=== PATIENT | male | born 1950 | race Caucasian/White ===

== ENCOUNTER 2016-09-28 15:56 | Inpatient (IN) | payer MEDICARE ==
[~2016-09-28] VITALS: Ht 181.6 cm; Wt 86.1 kg
[2016-09-28] VITALS (7 sets, daily range): BP systolic 155–175; BP diastolic 73–92; PULSE 56–68; RESP 10–18; O2SAT 91–99
[2016-09-28 16:10] LABS: BASOPHILS % (AUTO) 0.2 % (0-3); EOSINOPHILS % (AUTO) 0.3 % (0-5); MONOCYTES % (AUTO) 9.2 % (4-12); Mean Corpuscular Hemoglobin 28.8 pg (27.0-35.0); Mean Corpuscular Volume 83.9 fL (81-100); NEUTROPHILS % (AUTO) 71.7 % (40-74); Platelet Count 190 bil/L (150-400)
[2016-09-28] MEDS ORDERED: 0.9% Sodium Chloride 1,000 ML IV ONE ×2 (16:14→18:15)
--- NOTE | 2016-09-28 16:14 | ED.REPORT ---
HPI-Abd Pain M 40 and Over Date of Service Sep 28, 2016 ED Provider: Jaden Enamorado MD Pt is 66 y/o male with a history of kidney stones who presents to ER complaining of abdominal pain onset yesterday at 0200. He began vomiting at 0300. The pt describes the abdominal pain as sharp and states that it does not radiate. The pain has been worsening since onset, and is exacerbated by laying down, standing up, or vomiting. Nothing relieves the pain. Pt is also experiencing subjective fever, diaphoresis, dehydration, and chills. He denies chest pain, SOB, or dysuria. The pt states that his pain is not similar to the pain he previously felt with kidney stones. Nursing Notes Stated Complaint: ABDOMINAL PAIN Chief Complaint: Male Abdominal Pain Nursing Notes Reviewed: Yes (Results [employer], meds not reconciled) Allergies: Coded Allergies: shellfish derived (Verified Allergy, Unknown, 09/28/16) No Active Prescriptions or Reported Meds General Time Seen by MD: 16:06 Chief Complaint Abdominal pain Hx Obtained From: Patient, EMS Arrived By: Ambulance Sudden in Onset?: No Onset Occurred: Yesterday Symptom Duration: Since onset Location: : Diffuse Recent Healthcare: No recent doctor visit, No recent hospitalization Similar Sx Previous: No Past Medical History Past Medical History kidney stones Past Surgical History adenoids Reports: Tonsillectomy Smoking History Former Smoker (quit 1998) Social History Alcohol Use: Denies alcohol use (sober since 1985) Ambulatory Status Independent Review of Systems Constitutional: Reports: Chills, Fever Respiratory: Denies: Shortness of breath Cardiovascular: Denies: Chest pain GI: Reports: Abdominal pain, Nausea, Vomiting Male: Denies Dysuria Musculoskeletal: Denies: Back pain, Neck pain Complete sys rev & neg: except as marked. Skin: Reports Diaphoresis Physical Exam Initial Vital Signs Vital Signs (First) Date Time Temp Pulse Resp B/P Pulse Ox O2 Delivery O2 Flow Rate FiO2 09/28/16 15:52 36.6 66 16 162/79 96 Room Air Initial VS: Reviewed, Vital signs normal (mild HTN) Head / Eyes: Atraumatic, Normocephalic, PERRL ENT: Mucous membranes moist, Conjunctiva normal, No scleral icterus Neck: Supple, Non-tender, Full range of motion Skin: Warm, Dry, No cyanosis Neurologic: Alert, Oriented, Nonfocal Psychiatric: Mood/affect normal, Behavior normal, Normal thought content General/Constitutional: Awake, Alert, Cooperative Appearance / Presentation: Positive: Uncomfortable appears to be in significant pain Respiratory / Chest: Atraumatic, Breath sounds NL, Breath sounds = bilat, No respiratory distress Cardiovascular: Heart rate NL, Regular rhythm, Heart sounds NL Abdomen: Atraumatic, Soft tender across lower abdomen Back: Atraumatic, Inspection NL Interpretation & Diagnostics Interpretation & Diagnostics: Abdomen US: IMPRESSION: 1. Cholelithiasis without evidence of cholecystitis. 2. No biliary duct dilatation. Dictated by: Jaspreet Agosto M.D. on 09/28/2016 at 18:28 Approved by: Jaspreet Agosto M.D. on 09/28/2016 at 18:[address]: IMPRESSION: 1. Cholelithiasis with mild gallbladder wall thickening and a small amount of pericholecystic fluid suspicious for cholecystitis. 2. No biliary ductal dilatation. 3. Mild indistinct hypoattenuation in the head and uncinate process of the pancreas with adjacent fluid along the anterior pararenal space compatible with patient's history of pancreatitis. No evidence of pseudocyst. Dictated by: Jaspreet Agosto M.D. on 09/28/2016 at 18:37 Approved by: Jaspreet Agosto M.D. on 09/28/2016 at 18:37 Lab Results Interpretation Result Diagram: 09/28/16 1606 09/28/16 1606 Test 09/28/16 16:06 White Blood Count 10.8th/mm3 (3.8-10.1) Red Blood Count 5.59mil/mm3 (4.40-5.80) Hemoglobin 16.1g/dL (13.8-17.2) Hematocrit 46.9% (41.0-50.0) Mean Corpuscular Volume 83.9fL (81-100) Mean Corpuscular Hemoglobin 28.8pg (27.0-35.0) Mean Corpuscular Hemoglobin Concent 34.3% (32.0-37.0) Red Cell Distribution Width 14.0% (12.3-15.4) Platelet Count 190bil/L (150-400) Neutrophils (%) (Auto) 71.7% (40-74) Lymphocytes (%) (Auto) 18.5% (14-46) Monocytes (%) (Auto) 9.2% (4-12) Eosinophils (%) (Auto) 0.3% (0-5) Basophils (%) (Auto) 0.2% (0-3) Sodium Level 136mEq/L (134-144) Potassium Level 3.4mEq/L (3.5-5.2) Chloride Level 98mEq/L (97-108) Carbon Dioxide Level 24mmol/L (18-29) Blood Urea Nitrogen 7mg/dL (8-27) Creatinine 0.79mg/dL (0.76-1.27) Estimat Glomerular Filtration Rate 104mL/min (>59) Glucose Level 127mg/dL (60-99) Calcium Level 9.2mg/dL (8.5-10.1) Magnesium Level 1.9mg/dL (1.6-2.6) Total Bilirubin 2.6mg/dL (0.0-1.2) Aspartate Amino Transf (AST/SGOT) 442U/L (0-50) Alanine Aminotransferase (ALT/SGPT) 243U/L (0-44) Alkaline Phosphatase 110U/L (25-160) Total Protein 7.1g/dL (6.4-8.4) Albumin 4.3g/dL (3.4-5.0) Lipase 7603U/L (13-60) Lab Results Interpretation: CBC trace leukocytosis CMP normal glucose, elevated bilirubin, LFTs, severely elevated lipase with obstructive pattern UA negative Re-Eval/Medical Decision Med Decision/Clinical Course This is a 66-year-old male presents with acute severe abdominal pain. He has no history of alcohol abuse or use, and no prior history of known gallbladder disease. On exam his in severe discomfort, required multiple titrated doses of pain and nausea medicines for symptomatic management. However his abdomen reveals only mild tenderness, without clinical signs of bianca peritonitis. His labs are no full pancreatitis, and the pattern is suspicious for potential obstructive pattern, with the possibility of bianca choledocholithiasis and a gallstone pancreatitis. An ultrasound does reveal gallstones, but no evidence of gallbladder wall thickening, and in no evidence of ductal dilatation is present on ultrasound. On CT scan of the abdomen, his pancreatitis without pseudocyst formation, or necrosis-on CT scanning there is no evidence of gallbladder wall edema with the radiologist raising the question of cholecystitis. The patient's receive aggressive IV fluids, pain and nausea medicines and was finally improved. Given the concern for choledocholithiasis remains, antibiotic was Zosyn are being administered. Given the concern for choledocholithiasis and gallstone pancreatitis, GI consultation was warranted the case is discussed. An MRCP has been ordered, and discussed with radiology, and will be obtained in the a.m. GI requests to continue Zosyn, and ensure adequate hydration with at least 200 mL per hour of IV fluids. With the possibility of a component of cholecystitis recurrent severe pancreatitis and suspected choledocholithiasis K for the first steps on medical management, evaluation and determine if adduct is obstructed by a persistent stone, with potential need for ERCP prior to any surgical intervention. It was explained to the family, that ultimately cholecystectomy likely be indicated in this setting, that the first step started address the pancreatitis and clarify the status of the duct. The case has been discussed the hospitalist, and the patient is being admitted in improved condition. The patient has required such amounts of pain medicines that he is mildly sedated on reevaluation-so the overall plan with the admission, GI consultation , antibiotics, aggressive fluids was all reviewed with the patient's with the patient in the room, but I am not convinced he understood everything. However he is vastly improved in comfort compared to the initial severe pain he presented with. Source of Hx: Old records Time of Eval: 17:24 Patient Status: Condition improved Re-Evaluation/Progress Note: Pt rechecked, who has marginally improved. He is drinking contrast for CT. Time of Eval: 19:10 Patient Status: Condition unchanged Re-Evaluation/Progress Note: Pt rechecked, who is resting. Pt and family informed of CT results, diagnosis, and need for admission. Pt and family understand and agree with the plan. All questions are addressed at this time. Consultation #1: Referral / Consult Name: Uri Nation MD Call Returned at: 18:09 Irrigation Foreman: Agrees with eval, Agrees with plan Note: Consult with Dr. Nation, GI specialist regarding medication recommendations. Consultation #2: Referral / Consult Name: Ari Morrison MD Consulted With: Hospitalist Call Returned at: 18:17 Irrigation Foreman: Agrees with eval, Agrees with plan, Accepts admit Note: Spoke with Dr. Morrison, hospitalist, regarding pt's case. Dr. Morrison agrees with the evaluation and agrees to admit the pt. Differential Diagnosis: Positive: Acute abdominal pain, Cholelithiasis, Negative: Abdominal aortic aneurysm, Abscess, Diverticular disease, Dyspepsia , Esophageal rupture, Gun shot wound abdomen, Peptic ulcer disease, Peritonitis , Pyelonephritis, Stab wound abdomen, Urinary tract infection, Urolithiasis, Volvulus Counseled Regarding: Diagnosis, Lab results, Need for admission Discharge & Departure Primary Impression: Pancreatitis Chronicity: acute Pancreatitis type: biliary Qualified Code: K85.1 - Biliary acute pancreatitis Additional Impressions: Choledocholithiasis with obstruction Cholangitis presence: without cholangitis Qualified Code: K80.51 - Calculus of bile duct without cholangitis or cholecystitis with obstruction Cholelithiasis Cholelithiasis location: gallbladder and bile duct Cholecystitis acuity: acute Biliary obstruction: with biliary obstruction Disposition: ADMITTED TO HOSPITAL Vital Signs - All Vital Signs Date Time Temp Pulse Resp B/P Pulse Ox O2 Delivery O2 Flow Rate FiO2 09/28/16 17:25 68 11 155/92 93 Room Air 09/28/16 16:25 68 10 167/76 99 Room Air 09/28/16 15:52 36.6 66 16 162/79 96 Room Air )( All Prior VS Reviewed: Yes Condition: Stable Scribe Attestation Portions of this note were transcribed by Ten Boyle and Neyda Feldman I , Dr. Enamorado personally performed the history, physical exam and medical decision-making; I reviewed and confirmed the accuracy of the information in the transcribed note. Signed by: Neyda Feldman and Leopoldo Paris, and [id number]. Jaden Enamorado MD Sep 28, 2016 16:14 Ten Boyle Sep 28, 2016 16:23 NEYDA FELDMAN Sep 28, 2016 19:10
[2016-09-28] MEDS ORDERED: Ondansetron 2 mg/mL 2 mL Inj IVPUSH ONE ×2 (16:15→17:15)
--- NOTE | 2016-09-28 16:15 | ED.REPORT ---
HPI-Abd Pain F 2 and Over Date of Service Sep 28, 2016 ED Provider: Jaden Enamorado MD Nursing Notes Stated Complaint: ABDOMINAL PAIN Chief Complaint: Male Abdominal Pain Allergies: Coded Allergies: shellfish derived (Verified Allergy, Unknown, 09/28/16) General Time Seen by MD: 16:06 Physical Exam Initial Vital Signs Vital Signs (First) Date Time Temp Pulse Resp B/P Pulse Ox O2 Delivery O2 Flow Rate FiO2 09/28/16 15:52 36.6 66 16 162/79 96 Room Air Interpretation & Diagnostics Lab Results Interpretation Result Diagram: 09/28/16 1606 09/28/16 1606 Test 09/28/16 16:06 White Blood Count 10.8th/mm3 (3.8-10.1) Red Blood Count 5.59mil/mm3 (4.40-5.80) Hemoglobin 16.1g/dL (13.8-17.2) Hematocrit 46.9% (41.0-50.0) Mean Corpuscular Volume 83.9fL (81-100) Mean Corpuscular Hemoglobin 28.8pg (27.0-35.0) Mean Corpuscular Hemoglobin Concent 34.3% (32.0-37.0) Red Cell Distribution Width 14.0% (12.3-15.4) Platelet Count 190bil/L (150-400) Neutrophils (%) (Auto) 71.7% (40-74) Lymphocytes (%) (Auto) 18.5% (14-46) Monocytes (%) (Auto) 9.2% (4-12) Eosinophils (%) (Auto) 0.3% (0-5) Basophils (%) (Auto) 0.2% (0-3) Sodium Level 136mEq/L (134-144) Potassium Level 3.4mEq/L (3.5-5.2) Chloride Level 98mEq/L (97-108) Carbon Dioxide Level 24mmol/L (18-29) Blood Urea Nitrogen 7mg/dL (8-27) Creatinine 0.79mg/dL (0.76-1.27) Estimat Glomerular Filtration Rate 104mL/min (>59) Glucose Level 127mg/dL (60-99) Calcium Level 9.2mg/dL (8.5-10.1) Magnesium Level 1.9mg/dL (1.6-2.6) Total Bilirubin 2.6mg/dL (0.0-1.2) Aspartate Amino Transf (AST/SGOT) 442U/L (0-50) Alanine Aminotransferase (ALT/SGPT) 243U/L (0-44) Alkaline Phosphatase 110U/L (25-160) Total Protein 7.1g/dL (6.4-8.4) Albumin 4.3g/dL (3.4-5.0) Lipase 7603U/L (13-60) Ten Boyle Sep 28, 2016 16:15 Jaden Enamorado MD Sep 28, 2016 16:59
[2016-09-28] MEDS: HYDROmorphone 0.5 mg/0.5 mL iSecure Syringe IVPUSH PRN ×4 (16:24→17:34)
[2016-09-28 16:34] LABS: Magnesium 1.9 mg/dL (1.6-2.6)
[2016-09-28] MEDS ORDERED: Iohexol 300 mg/mL 30 mL Inj PO ONE (16:55)
[2016-09-28] MEDS ORDERED: Promethazine Inj 12.5 MG in Dextrose 5%-Pha MIX 50 ML IV ONE (17:15)
[2016-09-28] MEDS ORDERED: Piperacillin-Tazo 3.375 Gm Inj 3.375 GM in Dextrose 5% Minibag Plus 50 ML IV ONE (18:15)
[2016-09-28] MEDS: 0.9% Sodium Chloride 1,000 ML IV SCH ×3 (18:15→23:15)
--- NOTE | 2016-09-28 18:30 | DRSVH ---
PROCEDURE: US ABDOMEN, LIMITED ([id number]) INDICATIONS: pancreatitis w/obstructive pattern ro cholelithias TECHNIQUE: Real-time focused scanning was performed of the right upper quadrant, with image documentation. COMPARISON: None. FINDINGS: There is a large shadowing mobile gallstone within gallbladder measuring up to 2.3 cm. No gallbladde r wall thickening or pericholecystic fluid. No biliary duct dilatation identified. Common bile duct measures up to 6 mm. IMPRESSION: 1. Cholelithiasis without evidence of cholecystitis. 2. No biliary duct dilatation. Dictated by: Jaspreet Agosto M.D. on 09/28/2016 at 18:28 Approved by: Jaspreet Agosto M.D. on 09/28/2016 at 18:28
--- NOTE | 2016-09-28 18:39 | DRSVH ---
PROCEDURE: CT ABDOMEN AND PELVIS WITH CONTRAST ([id number]) INDICATIONS: Abdominal pain TECHNIQUE: After the administration of oral and intravenous contrast, 5 mm thick sections acquired from the diap hragms to the symphysis. 5 mm thick coronal and sagittal reformats were performed. For radiation do se reduction, the following was used: automated exposure control, adjustment of mA and/or kV accordi ng to patient size. COMPARISON: [facility], , [facility]EN LTD, 09/28/2016, 17:42. FINDINGS: Image quality: There is mild motion artifact. ABDOMEN: Lung bases: There is mild dependent atelectasis bilaterally. Heart size is normal. Solid organs: Liver and spleen are normal in size and enhancement. There is a gallstone are demonst rated within the gallbladder measuring approximately 2 cm there is mild gallbladder wall thickening a nd hyperemia. A small amount of pericholecystic fluid is noted extending inferiorly along the left a nterior pararenal space. Biliary system is non-dilated with the common bile duct measuring up to 6 m m. There is no pancreatic duct dilatation. There is mild hypoattenuation in the head and uncinate p rocess of the pancreas. No evidence of pseudocyst. No adrenal nodules. Kidneys are normal in size and enhancement, without hydronephrosis. There is a small cyst in the left kidney. Peritoneum and bowel: Stomach, small bowel, and colon loops are normal in caliber and wall thickness . The appendix is normal in appearance. There is colonic diverticulosis without diverticulitis. No f ree fluid or air. Nodes and vessels: No retroperitoneal or mesenteric adenopathy. Aorta and inferior vena cava are no rmal in caliber. Miscellaneous: No ventral hernias. PELVIS: Genitourinary: Bladder wall thickness is normal. Miscellaneous: No inguinal hernias or adenopathy. Bones: No suspicious bony lesions. No vertebral body compression fractures. IMPRESSION: 1. Cholelithiasis with mild gallbladder wall thickening and a small amount of pericholecystic fluid suspicious for cholecystitis. 2. No biliary ductal dilatation. 3. Mild indistinct hypoattenuation in the head and uncinate process of the pancreas with adjacent fl uid along the anterior pararenal space compatible with patient's history of pancreatitis. No evidenc e of pseudocyst. Dictated by: Jaspreet Agosto M.D. on 09/28/2016 at 18:37 Approved by: Jaspreet Agosto M.D. on 09/28/2016 at 18:37
[2016-09-28] MEDS: Dextrose 5% 500 ML IV SCH (19:04)
[2016-09-28] MEDS ORDERED: HYDROmorphone 0.5 mg/0.5 mL iSecure Syringe IVPUSH PRN (19:05)
[2016-09-28] MEDS ORDERED: HYDROmorphone PCA 0.2 mg/mL 30 mL Inj IV PRN (19:05)
[2016-09-28] MEDS ORDERED: Alum-Mag Hydrox-Simeth 30 mL Suspension PO PRN (19:05)
[2016-09-28] MEDS ORDERED: MetoCLOpramide 5 mg/mL 2 mL Inj IVPUSH PRN (19:05)
[2016-09-28] MEDS ORDERED: Ondansetron 2 mg/mL 2 mL Inj IVPUSH PRN ×2 (19:05)
--- NOTE | 2016-09-28 19:12 | PCM.HPMED ---
Subjective Date of Service Sep 28, 2016 Primary Provider: Admitting Physician: Ari Morrison MD Primary Care Physician: Nopcp Attending Physician: Ari Morrison MD Chief Complaint: - abdominal pain History of Present Illness: 66 y/o male with h/o cholelithiasis presented to ED with c/o abdominal pain that started yesterday. He describes the pain as sharp, diffuses, non radiating , increased by lying down and bending. Associated with one episodes of non bloody vomiting. He also reports subjective feeling of fever, sweating and chills. He denies any chest pain, shortness of breath. In ED, he was found to hypertensive, saturating 93% on room air. Lab tests revealed mild leukocytosis ( wbc: 10.8), elevated lipase of 7603 and mild hypokalemia (3.4). Allergies Coded Allergies: shellfish derived (Verified Allergy, Unknown, 09/28/16) PMH - Gall stones Surgical History - None Social History Hx Alcohol Use: No (SOBER SINCE 1985) Hx Substance Use: No Smoking Status: Unknown if Ever Smoker Exam Vital Signs Vital Sign - Last Date Time Temp Pulse Resp B/P Pulse Ox O2 Delivery O2 Flow Rate FiO2 09/28/16 17:25 68 11 155/92 93 Room Air 09/28/16 15:52 36.6 Exam General/Constitutional: Awake, Alert, Cooperative Head / Eyes: Atraumatic, Normocephalic, PERRL ENT: Mucous membranes moist, Conjunctiva normal, No scleral icterus Neck: Supple, Non-tender, No cervical lymphadenopahty Respiratory: Normal respiratory effort, Breath sounds bilaterally equal. Abdomen: Soft, mild diffuse tenderness, No guarding, No rigidity, BS +nt Cardiovascular: Heart rate NL, Regular rhythm, Heart sounds NL, Peripheral circulation NL Skin: Warm, Dry, No cyanosis Neurologic: Alert, Oriented, Nonfocal Psychiatric: Mood/affect normal, Behavior normal, Normal thought content Back: Atraumatic, Inspection NL Lab and Diagnostics Result Diagram: 09/28/16 1606 09/28/16 1606 X-Rays, CTs and MRIs CT Abdomen (09/28/2016): 1. Cholelithiasis with mild gallbladder wall thickening and a small amount of pericholecystic fluid suspicious for cholecystitis. 2. No biliary ductal dilatation. 3. Mild indistinct hypoattenuation in the head and uncinate process of the pancreas with adjacent fluid along the anterior pararenal space compatible with patient's history of pancreatitis. No evidence of pseudocyst. US Abdomen (09/28/2016): 1. Cholelithiasis without evidence of cholecystitis.2. No biliary duct dilatation. Assessment & Plan 66 year old male with h/o gall stones presented to ED with c/o abdominal pain found to have elevated lipase. Abdominal pain likely due to pancreatitis and cholecystitis - Elevated lipase to 7603 - CT A/P revealed cholelithiasis,with features of cholecystitis and also pancreatitis. No biliary ductal dilatation. - Will start on clear liquid diet. Will advance it gradually as per tolerance - Intravenous hydration - Broad spectrum antibiotics - GI consulted from ED will follow their recommendations GI ppx: PPI DVT ppx: Heparin Status: To be admitted as inpatient as it will require more than two days of hospital stay due to complexity of medical condition. Ethics: Full code Pain Evaluation: Adequate Pain Control GI Prophylaxis: H2 moon VTE Prophylaxis: Sub-Q Heparin (Unfractionated) Resuscitation Status: CPR: Attempt Resuscitation Ari Morrison MD Sep 28, 2016 19:12
[2016-09-28 20:06] LABS: APPEARANCE,URINE CLEAR (CLEAR,HAZY); COLOR,URINE YELLOW (YELLOW); OCCULT BLOOD,URINE NEGATIVE (NEGATIVE); UROBILINOGEN,URINE NORMAL (NORMAL)
[2016-09-29] VITALS (13 sets, daily range): BP systolic 113–126; BP diastolic 64–66; PULSE 61–78; RESP 14–18; O2SAT 93–97
[2016-09-29] MEDS: 0.9% Sodium Chloride 1,000 ML IV SCH ×9 (00:04→21:51)
--- NOTE | 2016-09-29 00:10 | NUR ---
ADMIT; 66 yr old male to room 1020 at 1945 from 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 Received antiemetics in e.r. and pain rx. Sleepy. SUNGLASS CLIP ATTACHER set up. Room air 90's. Demolition Specialist dilaudid set up and explained how to use.
[2016-09-29] MEDS: Heparin 5,000 Unit/mL Inj SUBQ SCH ×3 (00:41→16:31)
[2016-09-29] MEDS: Piperacillin-Tazo 3.375 Gm Inj 3.375 GM in Dextrose 5% Minibag Plus 50 ML IV SCH ×3 (00:44→16:31)
--- NOTE | 2016-09-29 04:22 | NUR ---
TELE' set up at 2029. Sinus rhythm 65.
--- NOTE | 2016-09-29 06:58 | PCM.PNMED ---
Subjective Date of Service Sep 29, 2016 Subjective The patient is currently resting comfortably in bed. He notes his pain is increased stool but to 4 out of 10. 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 I do encourage him to use it if he needs to to help get pain control. He has had no nausea or vomiting. This pain is mostly in the upper abdomen. Labs from today are still pending. He does note that a power engineer did draw his labs today. Exam Vital Signs Vital Sign - Last Date Time Temp Pulse Resp B/P Pulse Ox O2 Delivery O2 Flow Rate FiO2 09/29/16 06:01 69 09/29/16 05:48 36.6 16 118/66 94 Room Air Intake and Output 09/28/16 09/28/16 09/29/16 Cumulative From/Thru 15:00 23:00 07:00 09/28/16 15:52 - 09/29/16 05:48 Intake Total 2000 ml 1450 ml 3450 ml Output Total 600 ml 600 ml Balance 2000 ml 850 ml 2850 ml Intake Oral 300 ml 300 ml IV Total 2000 ml 1150 ml 3150 ml Output Urine Total 600 ml 600 ml # Voids 1 1 # Bowel Movements 0 0 Exam Constitutional: Older male in no acute distress Head: Normocephalic atraumatic Chest: Clear to auscultation Cor: Regular rate and rhythm S1-S2 without murmur Abdomen: Soft there is tenderness in the epigastrium right upper quadrant no rebound or guarding noted, bowel sounds are present Extremities exam: No pedal edema noted IVs and Medications Medications Reviewed: Medications were reviewed in detail Lab and Diagnostics Laboratory Tests 72 Hours Test 09/28/16 16:06 09/28/16 18:45 White Blood Count 10.8th/mm3 (3.8-10.1) Red Blood Count 5.59mil/mm3 (4.40-5.80) Hemoglobin 16.1g/dL (13.8-17.2) Hematocrit 46.9% (41.0-50.0) Mean Corpuscular Volume 83.9fL (81-100) Mean Corpuscular Hemoglobin 28.8pg (27.0-35.0) Mean Corpuscular Hemoglobin Concent 34.3% (32.0-37.0) Red Cell Distribution Width 14.0% (12.3-15.4) Platelet Count 190bil/L (150-400) Neutrophils (%) (Auto) 71.7% (40-74) Lymphocytes (%) (Auto) 18.5% (14-46) Monocytes (%) (Auto) 9.2% (4-12) Eosinophils (%) (Auto) 0.3% (0-5) Basophils (%) (Auto) 0.2% (0-3) Sodium Level 136mEq/L (134-144) Potassium Level 3.4mEq/L (3.5-5.2) Chloride Level 98mEq/L (97-108) Carbon Dioxide Level 24mmol/L (18-29) Blood Urea Nitrogen 7mg/dL (8-27) Creatinine 0.79mg/dL (0.76-1.27) Estimat Glomerular Filtration Rate 104mL/min (>59) Glucose Level 127mg/dL (60-99) Calcium Level 9.2mg/dL (8.5-10.1) Magnesium Level 1.9mg/dL (1.6-2.6) Total Bilirubin 2.6mg/dL (0.0-1.2) Aspartate Amino Transf (AST/SGOT) 442U/L (0-50) Alanine Aminotransferase (ALT/SGPT) 243U/L (0-44) Alkaline Phosphatase 110U/L (25-160) Total Protein 7.1g/dL (6.4-8.4) Albumin 4.3g/dL (3.4-5.0) Lipase 7603U/L (13-60) Urine Color Yellow (YELLOW) Urine Appearance Clear (CLEAR,HAZY) Urine pH 8.0 (5.0-8.0) Urine Specific [place] 1.020 (1.003-1.035) Urine Protein Negativemg/dL (NEG,TRACE) Urine Glucose (UA) Negativemg/dL (NEGATIVE) Urine Ketones 15mg/dL (NEGATIVE) Urine Occult Blood Negative (NEGATIVE) Urine Nitrite Negative (NEGATIVE) Urine Bilirubin Negative (NEGATIVE) Urine Urobilinogen Normalmg/dL (NORMAL) Urine Leukocyte Esterase Negative (NEGATIVE) Urine RBC 0-2/hpf (0-2) Urine WBC 0-5/hpf (0-5) Urine Epithelial Cells None/hpf (NONE-MOD) Urine Crystals None seen (NONE SEEN) Urine Bacteria None/hpf (NONE-FEW) Urine Hyaline Casts None/lpf (NONE) Urine Granular Casts None seen (NONE SEEN) Urine Waxy Casts None seen (NONE SEEN) Urine Red Blood Cell Casts None seen (NONE SEEN) Urine White Blood Cell Casts None seen (NONE SEEN) Urine Mucus None seen (None Seen) Urine Trichomonas None seen (NONE SEEN) Urine Yeast None (NONE SEEN) Urinalysis Comment None Urine Culture Reflexed Not indicated Result Diagram: 09/28/16 1606 09/28/16 1606 X-Rays, CTs and MRIs CT Abdomen (09/28/2016): 1. Cholelithiasis with mild gallbladder wall thickening and a small amount of pericholecystic fluid suspicious for cholecystitis. 2. No biliary ductal dilatation. 3. Mild indistinct hypoattenuation in the head and uncinate process of the pancreas with adjacent fluid along the anterior pararenal space compatible with patient's history of pancreatitis. No evidence of pseudocyst. US Abdomen (09/28/2016): 1. Cholelithiasis without evidence of cholecystitis.2. No biliary duct dilatation. Assessment & Plan 66 year old male with h/o gall stones presented to ED with c/o abdominal pain found to have elevated lipase. Abdominal pain likely due to pancreatitis and cholecystitis - Elevated lipase to 7603 - CT A/P revealed cholelithiasis,with features of cholecystitis and also pancreatitis. No biliary ductal dilatation. - Will start on clear liquid diet. Will advance it gradually as per tolerance - Intravenous hydration at 200 mils per hour as ER doc mentions GI recommends - Broad spectrum antibiotics - GI consulted from ED will follow their recommendations Patient to have MRCP this morning. GI to see this morning to further evaluate. Labs from this morning are pending. GI ppx: PPI DVT ppx: Heparin Status: To be admitted as inpatient as it will require more than two days of hospital stay due to complexity of medical condition. Ethics: Full code Pain Evaluation: Adequate Pain Control GI Prophylaxis: H2 moon VTE Prophylaxis: Sub-Q Heparin (Unfractionated) VTE Mechanical Devices: Intermittant Pneumatic CD Resuscitation Status: CPR: Attempt Resuscitation Time spent 40 minutes Ayse Hall MD Sep 29, 2016 06:58
[2016-09-29 07:50] LABS: BASOPHILS % (AUTO) 0.1 % (0-3); EOSINOPHILS % (AUTO) 0.1 % (0-5); MONOCYTES % (AUTO) 8.9 % (4-12); Mean Corpuscular Hemoglobin 28.8 pg (27.0-35.0); Mean Corpuscular Volume 85.3 fL (81-100); NEUTROPHILS % (AUTO) 73.2 % (40-74); Platelet Count 148 bil/L (150-400)
[2016-09-29] MEDS: Pantoprazole 20 mg ER24 Tablet PO SCH (10:50)
--- NOTE | 2016-09-29 11:01 | DRSVH ---
PROCEDURE: MR ABDOMEN MRCP INDICATIONS: eval of choledocolithiasis TECHNIQUE: Coronal HASTE through the abdomen, axial 2-D FLASH in- and [id number], and breath-hold T2 FSE with fat saturation through the biliary system and pancreas. Oblique coronal and axial thin-slice HASTE, radial thick-slab HASTE centered on the extrahepatic bile ducts. Intravenous secretin: Not requested. COMPARISON: [facility], CT, CT [facility] 17:42. FINDINGS: Image quality: Excellent. Liver and biliary system: The liver is normal in size. No significant signal dropout is evident on the opposed phase images compared to the in phase images to suggest hepatic steatosis. No focal live r lesions are evident however, evaluation for liver lesions is suboptimal without contrast. The expe cted flow voids within the portal vein and hepatic veins within the liver are evident and suggest rustam t these vessels are patent. There is a prominent gallstone evident within the gallbladder, which juliet sures at least 2.2 cm in diameter. An additional subcentimeter gallstones are seen measuring up to 3 -4 mm within the dependent aspect of the gallbladder. Thickening of the wall of the gallbladder is p resent with moderate amount of pericholecystic fluid and mild upper abdominal ascites. The common bi le duct is slightly prominent in size and measures up to 8 mm in diameter. No intrahepatic biliary d ilatation is evident. No definite filling defects within the common bile duct are identified to sugg est choledocholithiasis. Other solid organs: The pancreas is not well evaluated on this examination. However, there is moder ate peripancreatic edema and edema involving the head and uncinate process of the pancreas. The main pancreatic duct does not appear to be enlarged. These spleen, and adrenals, and kidneys are within normal limits. A small exophytic cyst along the inferior aspect of the left kidney is incidentally n oted. There is no hydronephrosis. Nodes and vessels: No retroperitoneal or mesenteric adenopathy by size criteria. Aorta and inferior vena cava are normal in size. Bowel and peritoneum: The stomach is unremarkable. There is a moderate amount of fluid identified w ithin the duodenum which may represent focal ileus. Otherwise, the remainder of the small bowel loop s are unremarkable. Imaged portions of the colon are unremarkable. There is no bowel obstruction. A small amount of free fluid is seen within the right upper quadrant. No loculated fluid collections or large amounts of free air are identified. Lung bases: Mild atelectasis and a small right-sided pleural effusion is present. There is also a t race left-sided pleural effusion. The heart is normal in size without a pericardial effusion. Bones and soft tissues: No ventral hernias. Bone marrow is of normal overall signal. IMPRESSION: 1. Mild enlargement of the common bile duct without evidence of choledocholithiasis. 2. Gallbladder wall thickening, pericholecystic fluid, and cholelithiasis are suggestive of acute ch olecystitis. Please correlate clinically. 3. Moderate pancreatic edema and suggests pancreatitis. No pseudocysts are evident. Please note th at the pancreas is not adequately evaluated on this exam regarding pancreatitis complications. 4. Mild upper abdominal ascites. 5. Small bilateral effusions (right and left). There is mild right lower lobe consolidation which p robably represents atelectasis. Pneumonia cannot be excluded. Dictated by: Brenden Kasper M.D. on 09/29/2016 at 9:59 Approved by: Brenden Kasper M.D. on 09/29/2016 at 9:59
--- NOTE | 2016-09-29 14:09 | CONS ---
[address] [address] CONSULTATION REPORT PATIENT: CAROL TONY : 1950 MR#: [id number] ADMIT: 09/28/2016 JOB ID: [id number] DATE OF SERVICE: 09/29/2016 REASON FOR CONSULTATION: Pancreatitis. HISTORY OF PRESENTING ILLNESS: The patient is a 66-year-old gentleman with essentially no past medical history who presented to the emergency department with a complaint of epigastric pain without radiation that had started at approximately 3 p.m. yesterday. He states the pain started following eating popcorn that he made at home. The pain was associated with nausea and vomiting. He was unable to tolerate p.o. He also reported subjective fever and sweats, but denies any chills. He denied any associated diarrhea. He had never had any similar complaints like this in the past. He denies any excessive NSAID use. He denies any alcohol use. He states that he has not used any alcohol since 1985. Prior to that he reports that he did have a possible addiction. The patient denies any regurgitation symptoms prior to this episode or any heartburn symptoms. He denied any dysphagia or odynophagia. He denied any melena, hematochezia, or hematemesis. PAST MEDICAL HISTORY: None. PAST SURGICAL HISTORY: None. FAMILY HISTORY: Significant for his mother who had uterine cancer and a niece who has metastatic breast cancer. SOCIAL HISTORY: History of tobacco use but states that he quit more than 20 years ago. History of alcohol use but states that he has not had a drink since 1985. MEDICATIONS: None, with the exception of occasional Tylenol as needed. ALLERGIES: SHELLFISH. REVIEW OF SYSTEMS: His 10-point review of systems is otherwise negative, except as mentioned in the HPI. PHYSICAL EXAMINATION: His temperature is 36.6, his pulse is 66, blood pressure is 118/66, respiratory rate is 16, O2 saturation is 94% on room air. Generally, he is a white male in no apparent distress. He is oriented to person, place, and time, and answers questions appropriately. HEENT: No pallor. No icterus. Oropharynx is clear. Chest: Clear to auscultation bilaterally. Cardiovascular: S1, S2 heard. No murmurs appreciated. Abdomen: Soft, nondistended. He has some mild epigastric tenderness. There is no rebound or guarding, and bowel sounds are appreciated. Extremities: Without edema. LABORATORY DATA: Today shows a white blood cell count of 7.6, down from 10.8. His hemoglobin is 13.5, his hematocrit is 40, platelet count is 148. His sodium is 138, potassium 3.8, chloride of 104, CO2 of 24, BUN of 7, creatinine of 0.76, glucose is 99. His calcium is 8.1. Total bilirubin is 1.4, down from 1.6. His AST is 207, down from 442. ALT is 207, down from 243. Alkaline phosphatase is 90, down from 110. His total protein is 5.7, his albumin is 3.3, and his lipase is 558 down from 7603. His imaging tests have included an ultrasound of the abdomen which shows a large nonshadowing mobile gallstone within the gallbladder measuring 2.2 cm. No gallbladder wall thickening or pericholecystic fluid. No biliary duct dilation identified and the common bile duct measured approximately 6 mm. He also had a CT scan done which showed that the liver and spleen are normal in size and enhancement. There is a gallstone demonstrated within the gallbladder measuring approximately 2 cm and there is mild gallbladder wall thickening and hyperemia and a small amount of pericholecystic fluid is noted extending inferior along the anterior pararenal space. Biliary system is nondilated, with the common duct measuring up to 6 mm. There is no pancreatic duct dilation. There is mild hypoattenuation of the head and uncinate process of the pancreas. No evidence of pseudocyst. MEDICATIONS: His hospital medications include Protonix 20 mg daily. He is on heparin subcu. He is on Zosyn IV q.8 h. 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 He also has p.r.n. medications which include metoclopramide, Zofran, diphenhydramine. His IV is running normal saline at 200 mL/h. His total intake has been recorded as 1450 and his output as 600 mL. ASSESSMENT AND PLAN: A 66-year-old gentleman presenting with pancreatitis, with imaging showing gallstones in the gallbladder. I suspect he had or has passed the common bile duct stone and his pain has improved. Would recommend an MRCP to evaluate the biliary tree to see if there is a stone present in the CBD and if a stone is present will plan for ERCP. If MRCP does not show any evidence of choledocholithiasis, recommend cholecystectomy and then intraoperative cholangiogram. I have consulted Dr. David Shay with General Surgery. Will await MRI results. In the meantime, would continue clear liquid diet, which the patient seems to be tolerating, and continue to follow LFTs. Would also continue antibiotics as the patient did report symptoms of fever and sweats. Thank you for allowing me to participate in the patient's care. If you have any further questions, please not hesitate to contact me. JANE
--- NOTE | 2016-09-29 14:16 | CONS ---
[address] [address] CONSULTATION REPORT PATIENT: CAROL TONY : 1950 MR#: [id number] ADMIT: 09/28/2016 JOB ID: [id number] DATE OF SERVICE: 09/29/2016 CHIEF COMPLAINT: Gallstone pancreatitis. HISTORY OF PRESENT ILLNESS: The patient is a 66-year-old male who presented to the emergency department last night due to abdominal pain. According the patient, this pain started two days ago at 2 a.m. This was associated with numerous episodes of nausea and vomiting. The pain is described to be from the bilateral subcostal location all the way down to the lower abdomen. He has never had this pain before. Workup in the emergency department last night included an ultrasound as well as a CT scan that suggests cholelithiasis and pancreatitis. I was consulted by the gastroenterology service for evaluation. The patient just underwent an MRCP this morning due to elevated total bilirubin. The patient's lipase was 7600 and this morning it has come down to 558. PAST MEDICAL HISTORY: Kidney stones and tonsillectomy. MEDICATIONS: None. ALLERGIES: SHELLFISH. SOCIAL HISTORY: The patient lives in [place] with his mother. He is . He does not have any children. 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 FAMILY HISTORY: Positive for urine cancer in his mother and cholecystectomy in his grandmother. REVIEW OF SYSTEMS: Positive for the abdominal pain and nausea, vomiting. All other systems reviewed were negative. PHYSICAL EXAMINATION: The patient is currently sitting upright in the bed, in no acute distress. He has just returned from the MRCP testing. His BMI is 26.1, temperature is 36.6, blood pressure 118/66, pulse is 66, respirations 16. Head is normocephalic, atraumatic. There is no scleral icterus. Neck is supple. Heart is regular rate. Lungs are clear. Abdomen is slightly distended, and there is nonspecific tenderness with palpation in all quadrants, but more so in the epigastric region. There are no peritoneal signs. Extremities show no clubbing and no cyanosis. Neurologically, the patient is awake and alert and answers appropriately. LABORATORY EXAMINATION: This morning shows a white blood count of 7.6, hematocrit 40, platelet count is 148. His total bilirubin last night was 2.6 and it has come down to 1.4. His lipase was 7600 and now it is down to 558. ASSESSMENT AND PLAN: This is a 66-year-old male with a first episode of gallstone pancreatitis. He is clinically improving. We will follow up on the results of the MRCP to see if he needs an ERCP by the GI service. We will continue to allow his pancreatitis to resolve prior to pursuing laparoscopic cholecystectomy. His lipase and liver function tests will be repeated in the morning. JANE
--- NOTE | 2016-09-29 14:34 | NUR ---
Social Work Note: Initial Assessment Data& Assessment: EMR reviewed. SW met with pt at bedside to discuss discharge planning, SW role explained. Alber Rosen is a 66 year old male admitted for abdominal pain. Pt has Medicare and [facility] Supplemental insurance coverage. Pt does not have a PCP and reports not seeing a doctor since 1991. SW educated pt on the [facility] for follow up care, pt explained he will ask for recommendations for providers in the community. Pt lives with his mother in [place] and is independent with all ADL's at baseline. Pt drives. Pt does not use any DME. Pt denies HH or SNF hx. Pt denies LTC insurance or VA benefits. Pt states he has DPOA paperwork completed in a safety deposit box, SW requested a copy for his chart when possible. Pt explained he plans to discharge home via POV or private pay taxi when medically ready. Pt denies any needs at this time. SW provided SW phone number on [employer]. SW to continue to follow if any needs arise. No other discharge needs identified at this time. Plan: Anticipated discharge home via POV or private pay taxi when medically ready. Pt denies any needs at this time. SW to continue to follow if any needs arise. No other discharge needs identified at this time. RAJESH Zamorano Addendum: 09/29/16 at 1439 by HOMAR ROSSI Amended: Links added.
[2016-09-29] MEDS: Dextrose 5% 500 ML IV SCH (19:04)
--- NOTE | 2016-09-29 19:22 | NUR ---
Activity Pt had no c/o pain, N/V/D during shift. Able to ambulate safely in room and shower independently with only set up help. On skin assessment pt has small open area with blanchable redness on coccyx. States he normally gets "chaffed when I hike or walk a lot" and wants cornstarch to put on it. Applied mepilex and pt states "it feels better". Addendum: 09/29/16 at 1931 by MANDI CHRISTENSEN RN Entered in error on wrong pt.
--- NOTE | 2016-09-29 19:32 | NUR ---
Activity Pt having anxiety during shift, but no c/o pain and has RAIL GRINDER in place. Able to ambulate independantly in room. Pt's mom having abd pain in room during shift and was taken to ED then admitted to second floor room 2007. Pt notified of her status.
[2016-09-30] VITALS (12 sets, daily range): BP systolic 124–139; BP diastolic 52–71; PULSE 65–74; RESP 14–20; O2SAT 93–96
[2016-09-30] MEDS: Piperacillin-Tazo 3.375 Gm Inj 3.375 GM in Dextrose 5% Minibag Plus 50 ML IV SCH ×3 (00:28→17:10)
[2016-09-30] MEDS: Heparin 5,000 Unit/mL Inj SUBQ SCH ×3 (00:29→17:10)
--- NOTE | 2016-09-30 02:42 | NUR ---
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 Patient states he has 0/10 at this time. Patient A&Ox3. Up independent to bathroom. Using call light appropriately.
[2016-09-30 06:23] LABS: BASOPHILS % (AUTO) 0.1 % (0-3); EOSINOPHILS % (AUTO) 0.3 % (0-5); MONOCYTES % (AUTO) 10.6 % (4-12); Mean Corpuscular Hemoglobin 28.5 pg (27.0-35.0); Mean Corpuscular Volume 84.9 fL (81-100); NEUTROPHILS % (AUTO) 72.3 % (40-74); Platelet Count 131 bil/L (150-400)
[2016-09-30 06:47] LABS: INR 1.08 ratio
[2016-09-30] MEDS: Pantoprazole 20 mg ER24 Tablet PO SCH (08:52)
[2016-09-30] MEDS: 0.9% Sodium Chloride 1,000 ML IV SCH ×2 (08:52→20:33)
--- NOTE | 2016-09-30 10:40 | NUR ---
IV Site IV site infiltrated this AM. Warm pack applied to site. IV DC'd and intact. New IV site in right hand, 20g, 1 attempt. Patient denies pain and uses STAMP ANALYST occasionally. Denies nausea. Call light and tray table within reach. Will continue to monitor patient hourly.
--- NOTE | 2016-09-30 12:21 | PCM.PNMED ---
Subjective Date of Service Sep 30, 2016 Subjective Lying in bed seen this morning, no complaints of pain during my exam. Has been tolerating clear liquid diet. Denies fevers chills chest pain or shortness of breath. Exam Vital Signs Vital Sign - Last Date Time Temp Pulse Resp B/P Pulse Ox O2 Delivery O2 Flow Rate FiO2 09/30/16 12:04 18 93 09/30/16 09:54 37.2 73 128/69 Room Air Intake and Output 09/29/16 09/29/16 09/30/16 Cumulative From/Thru 15:00 23:00 07:00 09/28/16 15:52 - 09/30/16 06:55 Intake Total 2729 ml 2652 ml 8831 ml Output Total 1800 ml 1200 ml 3600 ml Balance 929 ml 1452 ml 5231 ml Intake Oral 1380 ml 1440 ml 3120 ml IV Total 1349 ml 1212 ml 5711 ml Output Urine Total 1800 ml 1200 ml 3600 ml # Voids 4 5 # Bowel Movements 0 Exam Constitutional: Older male in no acute distress Head: Normocephalic atraumatic Chest: Clear to auscultation Cor: Regular rate and rhythm S1-S2 without murmur Abdomen: Soft there is tenderness in the epigastrium right upper quadrant no rebound or guarding noted, bowel sounds are present Extremities exam: No pedal edema noted IVs and Medications Medications Reviewed: Medications were reviewed in detail Lab and Diagnostics Result Diagram: 09/30/16 0525 09/30/16 0330 X-Rays, CTs and MRIs CT Abdomen (09/28/2016): 1. Cholelithiasis with mild gallbladder wall thickening and a small amount of pericholecystic fluid suspicious for cholecystitis. 2. No biliary ductal dilatation. 3. Mild indistinct hypoattenuation in the head and uncinate process of the pancreas with adjacent fluid along the anterior pararenal space compatible with patient's history of pancreatitis. No evidence of pseudocyst. US Abdomen (09/28/2016): 1. Cholelithiasis without evidence of cholecystitis.2. No biliary duct dilatation. MRCP, September 29: IMPRESSION: 1. Mild enlargement of the common bile duct without evidence of choledocholithiasis. 2. Gallbladder wall thickening, pericholecystic fluid, and cholelithiasis are suggestive of acute cholecystitis. Please correlate clinically. 3. Moderate pancreatic edema and suggests pancreatitis. No pseudocysts are evident. Please note that the pancreas is not adequately evaluated on this exam regarding pancreatitis complications. 4. Mild upper abdominal ascites. 5. Small bilateral effusions (right and left). There is mild right lower lobe consolidation which probably represents atelectasis. Pneumonia cannot be excluded. Dictated by: Brenden Kasper M.D. on 09/29/2016 at 9:59 Assessment & Plan 66 year old male with h/o gall stones presented to ED with c/o abdominal pain found to have elevated lipase - with evidence of gallstone pancreatitis and no evidence of choledocholithiasis on MRCP Abdominal pain likely due to above gallstone pancreatitis - Elevated lipase to 7603 - CT A/P revealed cholelithiasis,with features of cholecystitis and also pancreatitis. No biliary ductal dilatation. - Advance to full liquid diet from clear liquid diet today given tolerance - Intravenous hydration at 100 mils per hour - Broad spectrum antibiotics - GI consulted from ED will follow their recommendations - Status post MRCP with no evidence of choledocholithiasis -Appreciate GI recommendations GI ppx: PPI DVT ppx: Heparin Status: To be admitted as inpatient as it will require more than two days of hospital stay due to complexity of medical condition. Ethics: Full code GI Prophylaxis: H2 moon VTE Prophylaxis: Sub-Q Heparin (Unfractionated) VTE Mechanical Devices: Intermittant Pneumatic CD Resuscitation Status: CPR: Attempt Resuscitation Time spent 35 minutes spent with evaluation and management, greater than 50% at time spent [id number] Attending Statement Advancing diet today but likely having cholecystectomy prior to discharge as facilitated by GI service Jr Levy DO Sep 30, 2016 12:21
--- NOTE | 2016-09-30 13:06 | PCM.PNSURG ---
Subjective Date of Service: Sep 30, 2016 Date of Service: Sep 30, 2016 Visit Information: Reason for Visit: Pancreatitis R/O Biliary Obstruction Date of Admission: Sep 28, 2016 at 18:27 Hospital Day #3 Subjective: The patient is sitting up in bed resting comfortably, denies nausea vomiting, discomfort or pain. 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) Postop Activity: Ambulating in Room Only Objective Vital Sign- Last 8 Hours Date Time Temp Pulse Resp B/P Pulse Ox O2 Delivery O2 Flow Rate FiO2 09/30/16 12:04 18 93 09/30/16 09:54 37.2 73 18 128/69 94 Room Air 09/30/16 09:10 18 95 09/30/16 06:45 14 96 Intake and Output- Last 8 Hour 09/30/16 Cumulative From/Thru 07:00 09/28/16 15:52 - 09/30/16 06:55 Intake Total 2652 ml 8831 ml Output Total 1200 ml 3600 ml Balance 1452 ml 5231 ml Intake Oral 1440 ml 3120 ml IV Total 1212 ml 5711 ml Output Urine Total 1200 ml 3600 ml # Voids 5 # Bowel Movements 0 General: Alert, Oriented X3, No Acute Distress Lungs: Clear to Auscultation Heart: Regular Rate/Rhythm Abdomen: Benign, Soft, Non-tender, Non-distended, Normoactive bowel tones Extremities: Thigh&Calf Soft/Nontender Neuro: Grossly Neurologically Intact Catheters: None Result Diagram: 09/30/16 0525 09/30/16 0330 Lab & Micro Results: WBC: 10.8 - 7.6 - 9.9 PLT: 190 - 148 - 131 AST: 442 - 207 - 73 ALT: 243 - 207 - 132 Lipase: 7603 - 558 - 60 Diagnostics: CT Abdomen & Pelvis with contrast 09/28/16 IMPRESSION: 1. Cholelithiasis with mild gallbladder wall thickening and a small amount of pericholecystic fluid suspicious for cholecystitis. 2. No biliary ductal dilatation. 3. Mild indistinct hypoattenuation in the head and uncinate process of the pancreas with adjacent fluid along the anterior pararenal space compatible with patient's history of pancreatitis. No evidence of pseudocyst. Ultrasound of Abdomen 09/28/16 IMPRESSION: 1. Cholelithiasis without evidence of cholecystitis. 2. No biliary duct dilatation. MRCP Abdomen 09/29/16 IMPRESSION: 1. Mild enlargement of the common bile duct without evidence of choledocholithiasis. 2. Gallbladder wall thickening, pericholecystic fluid, and cholelithiasis are suggestive of acute cholecystitis. Please correlate clinically. 3. Moderate pancreatic edema and suggests pancreatitis. No pseudocysts are evident. Please note that the pancreas is not adequately evaluated on this exam regarding pancreatitis complications. 4. Mild upper abdominal ascites. 5. Small bilateral effusions (right and left). There is mild right lower lobe consolidation which probably represents atelectasis. Pneumonia cannot be excluded. 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
--- NOTE | 2016-09-30 13:29 | PCM.PNMED ---
Subjective Date of Service Sep 30, 2016 Subjective Mr. 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 Exam Vital Signs Vital Sign - Last Date Time Temp Pulse Resp B/P Pulse Ox O2 Delivery O2 Flow Rate FiO2 09/30/16 12:04 18 93 09/30/16 09:54 37.2 73 128/69 Room Air Intake and Output 09/29/16 09/29/16 09/30/16 Cumulative From/Thru 15:00 23:00 07:00 09/28/16 15:52 - 09/30/16 06:55 Intake Total 2729 ml 2652 ml 8831 ml Output Total 1800 ml 1200 ml 3600 ml Balance 929 ml 1452 ml 5231 ml Intake Oral 1380 ml 1440 ml 3120 ml IV Total 1349 ml 1212 ml 5711 ml Output Urine Total 1800 ml 1200 ml 3600 ml # Voids 4 5 # Bowel Movements 0 Exam Generally no apparent distress oriented to person place and time HEENT no pallor Respiratory clear to auscultation Cardiovascular S1 and S2 heard Abdomen soft, nondistended, nontender, positive bowel sounds Lab and Diagnostics Result Diagram: 09/30/16 0525 09/30/16 0330 X-Rays, CTs and MRIs CT Abdomen (09/28/2016): 1. Cholelithiasis with mild gallbladder wall thickening and a small amount of pericholecystic fluid suspicious for cholecystitis. 2. No biliary ductal dilatation. 3. Mild indistinct hypoattenuation in the head and uncinate process of the pancreas with adjacent fluid along the anterior pararenal space compatible with patient's history of pancreatitis. No evidence of pseudocyst. US Abdomen (09/28/2016): 1. Cholelithiasis without evidence of cholecystitis.2. No biliary duct dilatation. MRCP, September 29: IMPRESSION: 1. Mild enlargement of the common bile duct without evidence of choledocholithiasis. 2. Gallbladder wall thickening, pericholecystic fluid, and cholelithiasis are suggestive of acute cholecystitis. Please correlate clinically. 3. Moderate pancreatic edema and suggests pancreatitis. No pseudocysts are evident. Please note that the pancreas is not adequately evaluated on this exam regarding pancreatitis complications. 4. Mild upper abdominal ascites. 5. Small bilateral effusions (right and left). There is mild right lower lobe consolidation which probably represents atelectasis. Pneumonia cannot be excluded. Dictated by: Brenden Kasper M.D. on 09/29/2016 at 9:59 Assessment & Plan Gallstone pancreatitis -Multiple imaging studies without evidence of choledocholithiasis, LFTs are improving however bilirubin is minimally up today -Recommend following LFTs -Recommend Cholecystectomy with intraoperative cholangiogram Colon cancer screening -Recommend colonoscopy as an outpatient for screening GI Prophylaxis: H2 moon VTE Prophylaxis: Sub-Q Heparin (Unfractionated) VTE Mechanical Devices: Intermittant Pneumatic CD Resuscitation Status: CPR: Attempt Resuscitation Uri Nation MD Sep 30, 2016 13:29
--- NOTE | 2016-09-30 14:56 | NUR ---
Continued Discharge Planning: SW conducted discharge planning update. Plan remains as home in [place], pending clinical course. EMR notes refect possible cholecystomy. Patient is self pay and [facility] is following. Per [facility] notes, patient has no payer source at this time. Patient diet to be advanced. SW to follow as further needs arise. PLAN: Home, via POV, pending clinical course. SW to follow as patient is self pay. [facility] following. Alvaro MENA
--- NOTE | 2016-09-30 16:13 | NUR ---
Off Unit Patient off floor to visit his mother in room 2007.
--- NOTE | 2016-09-30 16:37 | PROG NOTE ---
[address] [address] PROGRESS NOTE PATIENT: CAROL TONY : 1950 MR#: [id number] ADMIT: 09/28/2016 JOB ID: [id number] DATE: 09/30/2016 HISTORY OF PRESENT ILLNESS: The patient is seen in followup. He was admitted with pancreatitis. He has gallstones with a presumptive diagnosis of gallstone pancreatitis. His MR scan showed no evidence of choledocholithiasis and that was completed on September 29, 2016. He is currently not having pain, but his MR scan did show moderate pancreatic edema, mild upper abdominal ascites, small bilateral effusions and gallbladder wall thickening. His lipase has normalized. His white blood cell count has normalized. His hematocrit is stable at 38, but his bilirubin today did go from 1.4 yesterday to 2.0 today. His lipase is within normal limits at 60. IMPRESSION: Gallstone pancreatitis, clinically improved. I discussed a laparoscopic possible open cholecystectomy with the patient and cholangiograms. I discussed the typical recovery. I discussed potential operative complications including, but not limited to, bleeding, infection, bile leak, bile ductal injury, and postoperative diarrhea. I discussed the typical recovery. He is tentatively on the schedule for tomorrow. He is aware that it will be done either by myself or by Dr. Jr Lo. Unfortunately, the patient's 90-year-old mother had a myocardial infarction and is in the hospital at the same time. His GRIPS will be stopped so he can go off the floor to visit his mother.
--- NOTE | 2016-09-30 16:46 | NUR ---
Back on Unit Patient back on floor from P[facility] room 2007. Denies pain and nausea at this time. Patient worried about mother. Call light and tray table within reach. Will continue to monitor patient hourly.
[2016-10-01] VITALS (10 sets, daily range): BP systolic 99–167; BP diastolic 60–98; PULSE 58–78; RESP 13–22; O2SAT 94–97
[2016-10-01] MEDS: Piperacillin-Tazo 3.375 Gm Inj 3.375 GM in Dextrose 5% Minibag Plus 50 ML IV SCH ×4 (00:03→18:10)
[2016-10-01] MEDS: Heparin 5,000 Unit/mL Inj SUBQ SCH ×3 (00:08→17:54)
--- NOTE | 2016-10-01 04:42 | NUR ---
Sleep/ Pain/ Anxiety over family illness; Call placed to PCC RN for update on mother early in shift. Re-assured pt that she was stable and doing well. Expressed great relief as well as acknowledging she is a No Code status. NPO p/ 0400 for Choli sometime this AM. No consent signed as no ordered written yet. Continue IVF's and ABX as ordered. Slept t/o the night. Continue current care plan.
[2016-10-01] MEDS: 0.9% Sodium Chloride 1,000 ML IV SCH ×2 (05:26→17:15)
[2016-10-01 05:58] LABS: BASOPHILS % (AUTO) 0.3 % (0-3); EOSINOPHILS % (AUTO) 2.3 % (0-5); MONOCYTES % (AUTO) 10.1 % (4-12); Mean Corpuscular Volume 84.3 fL (81-100); Platelet Count 133 bil/L (150-400)
[2016-10-01] MEDS: Pantoprazole 20 mg ER24 Tablet PO SCH (07:59)
--- NOTE | 2016-10-01 09:01 | PCM.PNMED ---
Subjective Date of Service Oct 01, 2016 Subjective Patient denies any nausea or vomiting. He is scheduled for the OR today at 10 AM. Denies any fevers or chills. Exam Vital Signs Vital Sign - Last Date Time Temp Pulse Resp B/P Pulse Ox O2 Delivery O2 Flow Rate FiO2 10/01/16 04:00 36.6 62 20 131/74 95 Room Air Intake and Output 09/30/16 09/30/16 10/01/16 Cumulative From/Thru 15:00 23:00 07:00 09/28/16 15:52 - 10/01/16 06:15 Intake Total 2217 ml 1952 ml 19640 ml Output Total 2225 ml 2100 ml 7925 ml Balance -8 ml -148 ml 5075 ml Intake Oral 1300 ml 720 ml 5140 ml IV Total 917 ml 1232 ml 7860 ml Output Urine Total 2225 ml 2100 ml 7925 ml # Voids 5 # Bowel Movements 0 Exam Constitutional: Middle-aged male in no acute distress Head: Normocephalic atraumatic Chest: Clear to auscultation Cor: Regular rate and rhythm S1-S2 without murmur Abdomen: Soft nontender bowel sounds present Extremities: No pedal edema Neuro: Alert and oriented 3, motor strength is intact bilaterally Lab and Diagnostics Laboratory Tests 72 Hours Test 09/28/16 16:06 09/28/16 18:45 09/29/16 06:11 09/30/16 03:30 White Blood Count 10.8th/mm3 (3.8-10.1) 7.6th/mm3 (3.8-10.1) Red Blood Count 5.59mil/mm3 (4.40-5.80) 4.69mil/mm3 (4.40-5.80) Hemoglobin 16.1g/dL (13.8-17.2) 13.5g/dL (13.8-17.2) Hematocrit 46.9% (41.0-50.0) 40.0% (41.0-50.0) Mean Corpuscular Volume 83.9fL (81-100) 85.3fL (81-100) Mean Corpuscular Hemoglobin 28.8pg (27.0-35.0) 28.8pg (27.0-35.0) Mean Corpuscular Hemoglobin Concent 34.3% (32.0-37.0) 33.8% (32.0-37.0) Red Cell Distribution Width 14.0% (12.3-15.4) 14.2% (12.3-15.4) Platelet Count 190bil/L (150-400) 148bil/L (150-400) Neutrophils (%) (Auto) 71.7% (40-74) 73.2% (40-74) Lymphocytes (%) (Auto) 18.5% (14-46) 17.6% (14-46) Monocytes (%) (Auto) 9.2% (4-12) 8.9% (4-12) Eosinophils (%) (Auto) 0.3% (0-5) 0.1% (0-5) Basophils (%) (Auto) 0.2% (0-3) 0.1% (0-3) Sodium Level 136mEq/L (134-144) 138mEq/L (134-144) 139mEq/L (134-144) Potassium Level 3.4mEq/L (3.5-5.2) 3.8mEq/L (3.5-5.2) 3.5mEq/L (3.5-5.2) Chloride Level 98mEq/L (97-108) 104mEq/L (97-108) 104mEq/L (97-108) Carbon Dioxide Level 24mmol/L (18-29) 24mmol/L (18-29) 24mmol/L (18-29) Blood Urea Nitrogen 7mg/dL (8-27) 7mg/dL (8-27) 6mg/dL (8-27) Creatinine 0.79mg/dL (0.76-1.27) 0.96mg/dL (0.76-1.27) 0.90mg/dL (0.76-1.27) Estimat Glomerular Filtration Rate 104mL/min (>59) 83mL/min (>59) 89mL/min (>59) Glucose Level 127mg/dL (60-99) 99mg/dL (60-99) 84mg/dL (60-99) Calcium Level 9.2mg/dL (8.5-10.1) 8.1mg/dL (8.5-10.1) 8.1mg/dL (8.5-10.1) Magnesium Level 1.9mg/dL (1.6-2.6) Total Bilirubin 2.6mg/dL (0.0-1.2) 1.4mg/dL (0.0-1.2) 2.0mg/dL (0.0-1.2) Aspartate Amino Transf (AST/SGOT) 442U/L (0-50) 207U/L (0-50) 73U/L (0-50) Alanine Aminotransferase (ALT/SGPT) 243U/L (0-44) 207U/L (0-44) 132U/L (0-44) Alkaline Phosphatase 110U/L (25-160) 90U/L (25-160) 86U/L (25-160) Total Protein 7.1g/dL (6.4-8.4) 5.7g/dL (6.4-8.4) 5.3g/dL (6.4-8.4) Albumin 4.3g/dL (3.4-5.0) 3.3g/dL (3.4-5.0) 3.3g/dL (3.4-5.0) Lipase 7603U/L (13-60) 558U/L (13-60) 60U/L (13-60) Urine Color Yellow (YELLOW) Urine Appearance Clear (CLEAR,HAZY) Urine pH 8.0 (5.0-8.0) Urine Specific [place] 1.020 (1.003-1.035) Urine Protein Negativemg/dL (NEG,TRACE) Urine Glucose (UA) Negativemg/dL (NEGATIVE) Urine Ketones 15mg/dL (NEGATIVE) Urine Occult Blood Negative (NEGATIVE) Urine Nitrite Negative (NEGATIVE) Urine Bilirubin Negative (NEGATIVE) Urine Urobilinogen Normalmg/dL (NORMAL) Urine Leukocyte Esterase Negative (NEGATIVE) Urine RBC 0-2/hpf (0-2) Urine WBC 0-5/hpf (0-5) Urine Epithelial Cells None/hpf (NONE-MOD) Urine Crystals None seen (NONE SEEN) Urine Bacteria None/hpf (NONE-FEW) Urine Hyaline Casts None/lpf (NONE) Urine Granular Casts None seen (NONE SEEN) Urine Waxy Casts None seen (NONE SEEN) Urine Red Blood Cell Casts None seen (NONE SEEN) Urine White Blood Cell Casts None seen (NONE SEEN) Urine Mucus None seen (None Seen) Urine Trichomonas None seen (NONE SEEN) Urine Yeast None (NONE SEEN) Urinalysis Comment None Urine Culture Reflexed Not indicated Test 09/30/16 05:25 10/01/16 04:53 10/01/16 05:40 White Blood Count 9.9th/mm3 (3.8-10.1) 7.7th/mm3 (3.8-10.1) Red Blood Count 4.56mil/mm3 (4.40-5.80) 4.65mil/mm3 (4.40-5.80) Hemoglobin 13.0g/dL (13.8-17.2) 13.5g/dL (13.8-17.2) Hematocrit 38.7% (41.0-50.0) 39.2% (41.0-50.0) Mean Corpuscular Volume 84.9fL (81-100) 84.3fL (81-100) Mean Corpuscular Hemoglobin 28.5pg (27.0-35.0) 29.0pg (27.0-35.0) Mean Corpuscular Hemoglobin Concent 33.6% (32.0-37.0) 34.4% (32.0-37.0) Red Cell Distribution Width 14.2% (12.3-15.4) 13.9% (12.3-15.4) Platelet Count 131bil/L (150-400) 133bil/L (150-400) Neutrophils (%) (Auto) 72.3% (40-74) 69.0% (40-74) Lymphocytes (%) (Auto) 16.6% (14-46) 18.0% (14-46) Monocytes (%) (Auto) 10.6% (4-12) 10.1% (4-12) Eosinophils (%) (Auto) 0.3% (0-5) 2.3% (0-5) Basophils (%) (Auto) 0.1% (0-3) 0.3% (0-3) Prothrombin Time 11.6sec (8.1-12.5) Prothromb Time International Ratio 1.08ratio Sodium Level 140mEq/L (134-144) Potassium Level 3.7mEq/L (3.5-5.2) Chloride Level 106mEq/L (97-108) Carbon Dioxide Level 24mmol/L (18-29) Blood Urea Nitrogen 5mg/dL (8-27) Creatinine 0.92mg/dL (0.76-1.27) Estimat Glomerular Filtration Rate 87mL/min (>59) Glucose Level 97mg/dL (60-99) Calcium Level 8.3mg/dL (8.5-10.1) Total Bilirubin 1.5mg/dL (0.0-1.2) Aspartate Amino Transf (AST/SGOT) 33U/L (0-50) Alanine Aminotransferase (ALT/SGPT) 92U/L (0-44) Alkaline Phosphatase 89U/L (25-160) Total Protein 5.6g/dL (6.4-8.4) Albumin 3.3g/dL (3.4-5.0) Lipase 25U/L (13-60) Result Diagram: 10/01/16 0453 10/01/16 0540 X-Rays, CTs and MRIs CT Abdomen (09/28/2016): 1. Cholelithiasis with mild gallbladder wall thickening and a small amount of pericholecystic fluid suspicious for cholecystitis. 2. No biliary ductal dilatation. 3. Mild indistinct hypoattenuation in the head and uncinate process of the pancreas with adjacent fluid along the anterior pararenal space compatible with patient's history of pancreatitis. No evidence of pseudocyst. US Abdomen (09/28/2016): 1. Cholelithiasis without evidence of cholecystitis.2. No biliary duct dilatation. MRCP, September 29: IMPRESSION: 1. Mild enlargement of the common bile duct without evidence of choledocholithiasis. 2. Gallbladder wall thickening, pericholecystic fluid, and cholelithiasis are suggestive of acute cholecystitis. Please correlate clinically. 3. Moderate pancreatic edema and suggests pancreatitis. No pseudocysts are evident. Please note that the pancreas is not adequately evaluated on this exam regarding pancreatitis complications. 4. Mild upper abdominal ascites. 5. Small bilateral effusions (right and left). There is mild right lower lobe consolidation which probably represents atelectasis. Pneumonia cannot be excluded. Dictated by: Brenden Kasper M.D. on 09/29/2016 at 9:59 Assessment & Plan Gallstone pancreatitis -Multiple imaging studies without evidence of choledocholithiasis, LFTs are improving however bilirubin is minimally up today -Recommend following LFTs -Recommend Cholecystectomy with intraoperative cholangiogram : Patient scheduled for OR today at 10 AM for cholecystectomy with intraoperative cholangiogram Colon cancer screening -Recommend colonoscopy as an outpatient for screening GI Prophylaxis: H2 moon VTE Prophylaxis: Sub-Q Heparin (Unfractionated) VTE Mechanical Devices: Intermittant Pneumatic CD Resuscitation Status: CPR: Attempt Resuscitation Time spent 30 minutes Ayse Hall MD Oct 01, 2016 09:01
[2016-10-01] MEDS ORDERED: CeFAZolin Inj 2 GM in IV Premix 1 EACH IV ONE (09:15)
--- NOTE | 2016-10-01 09:35 | PCM.HPANE ---
Patient Data Surgeon Admitting Provider:Ari Morrison MD Attending Provider:Ari Morrison MD Primary Care Physician:Nopcp Other Provider: Reason for Visit Pancreatitis R/O Biliary Obstruction PANCREATITIS R/O BILIARY OBSTRUCTION Ht/WT & BMI Height (Feet): 5 Height (Inches): 11.50 Weight (Kilograms): 86.100 Body Mass Index 25.96 Allergies Coded Allergies: shellfish derived (Verified Allergy, Unknown, 09/28/16) Diabetes History Hx Diabetes?: No Medications No Active Prescriptions or Reported Meds History History of ENT Problems?: No Other HEENT Pertinent History: pt denies Hx of Heart Problems?: No Cardiovascular History: Denies:: Congestive Heart Failure Hypertension Other Cardiac History: pt denies Hx of Respiratory Problem?: No Respiratory History: Denies:: Tuberculosis Other Resp Pertinent History: pt denies Hx Neurologic Problems?: No Other Neurological Pertinent: pt denies Hx of GI Problems?: Yes Gastrointestinal History: Denies:: Diverticulitis Gastroesphageal Reflux Gastrointestinal Bleeding Heartburn Hiatal Hernia Rectal Bleeding Other GI Pertinent History: According to e.r. report, h/o gallstones. Hx of Problems?: No Other Pertinent History: pt denies Other Skin Pertinent History: pt denies Hx Musculoskeletal Problems?: No Hx of Psycho/Social Problems?: No Other Psych Pertinent History: pt denies Hx Surgeries?: No Hx Any Other Health Problems?: No History Blood Transfusions: Positive for:: Accept Blood Products? Denies:: Blood Transfusions Hx Diabetes: No Hx Alcohol Use: Yes (many years ago)Hx Substance Use: No Smoking Status: Former Smoker (quit 1998) Have You Smoked inLast 12 mo: No (quit in 1998) Stop/Bang Treated for Sleep Apnea?: No Do You Have a CPAP Machine?: No S-Snoring: Do You Snore Loudly: No T-Tired: feel tired, fatigued: No O-Obsered: Observed not breath: No P-Blood Pressure: treated: No B- Body Mass Index > 35 kg/m2: No A- Age over 50: Yes N- Neck Large Circumference: No G- Gender Male: Yes ADOLPH Total Score: 1 Risk Assessment Category Category 1A: Patient has history of documented sleep apnea, and HAS NOT received any narcotic, sedative or anesthesia administration during this stay. Category 1B: Patient has history of documented sleep apnea, and HAS received any narcotic , sedative or anesthesia administration during this stay Category 2: Patient has SUSPECTED Obstructive Sleep Apnea, and HAS received any narcotic , sedative or anesthesia administration during this stay. Category 3: Patient has SUSPECTED Obstructive Sleep Apnea and HAS NOT received narcotic, sedative or anesthesia administration during this stay. Category 4: Outpatient in Procedural Areas with known sleep apnea or who screen positive for High Risk via the STOP/BANG questionnaire. Exam Exam Vital Signs Vital Signs Date Time Temp Pulse Resp B/P Pulse Ox O2 Delivery O2 Flow Rate FiO2 10/01/16 04:00 36.6 62 20 131/74 95 Room Air General Appearance: Alert, Oriented X3, Cooperative HEENT/AIRWAY: MP 2, Neck Movement (from, kelly), Mouth Opening (wnl) Lungs: Clear to Auscultation Heart: Exam Unremarkable Meds/Labs/Diagnostics Labs Test 09/28/16 16:06 09/28/16 18:45 09/30/16 05:25 10/01/16 04:53 Magnesium Level 1.9mg/dL (1.6-2.6) Urine Color Yellow (YELLOW) Urine Appearance Clear (CLEAR,HAZY) Urine pH 8.0 (5.0-8.0) Urine Specific [place] 1.020 (1.003-1.035) Urine Protein Negativemg/dL (NEG,TRACE) Urine Glucose (UA) Negativemg/dL (NEGATIVE) Urine Ketones 15mg/dL (NEGATIVE) Urine Occult Blood Negative (NEGATIVE) Urine Nitrite Negative (NEGATIVE) Urine Bilirubin Negative (NEGATIVE) Urine Urobilinogen Normalmg/dL (NORMAL) Urine Leukocyte Esterase Negative (NEGATIVE) Urine RBC 0-2/hpf (0-2) Urine WBC 0-5/hpf (0-5) Urine Epithelial Cells None/hpf (NONE-MOD) Urine Crystals None seen (NONE SEEN) Urine Bacteria None/hpf (NONE-FEW) Urine Hyaline Casts None/lpf (NONE) Urine Granular Casts None seen (NONE SEEN) Urine Waxy Casts None seen (NONE SEEN) Urine Red Blood Cell Casts None seen (NONE SEEN) Urine White Blood Cell Casts None seen (NONE SEEN) Urine Mucus None seen (None Seen) Urine Trichomonas None seen (NONE SEEN) Urine Yeast None (NONE SEEN) Urinalysis Comment None Urine Culture Reflexed Not indicated Prothrombin Time 11.6sec (8.1-12.5) Prothromb Time International Ratio 1.08ratio White Blood Count 7.7th/mm3 (3.8-10.1) Red Blood Count 4.65mil/mm3 (4.40-5.80) Hemoglobin 13.5g/dL (13.8-17.2) Hematocrit 39.2% (41.0-50.0) Mean Corpuscular Volume 84.3fL (81-100) Mean Corpuscular Hemoglobin 29.0pg (27.0-35.0) Mean Corpuscular Hemoglobin Concent 34.4% (32.0-37.0) Red Cell Distribution Width 13.9% (12.3-15.4) Platelet Count 133bil/L (150-400) Neutrophils (%) (Auto) 69.0% (40-74) Lymphocytes (%) (Auto) 18.0% (14-46) Monocytes (%) (Auto) 10.1% (4-12) Eosinophils (%) (Auto) 2.3% (0-5) Basophils (%) (Auto) 0.3% (0-3) Test 10/01/16 05:40 Sodium Level 140mEq/L (134-144) Potassium Level 3.7mEq/L (3.5-5.2) Chloride Level 106mEq/L (97-108) Carbon Dioxide Level 24mmol/L (18-29) Blood Urea Nitrogen 5mg/dL (8-27) Creatinine 0.92mg/dL (0.76-1.27) Estimat Glomerular Filtration Rate 87mL/min (>59) Glucose Level 97mg/dL (60-99) Calcium Level 8.3mg/dL (8.5-10.1) Total Bilirubin 1.5mg/dL (0.0-1.2) Aspartate Amino Transf (AST/SGOT) 33U/L (0-50) Alanine Aminotransferase (ALT/SGPT) 92U/L (0-44) Alkaline Phosphatase 89U/L (25-160) Total Protein 5.6g/dL (6.4-8.4) Albumin 3.3g/dL (3.4-5.0) Lipase 25U/L (13-60) Plan Impression Patient chart reviewed, patient interviewed and anesthestic plan with risks, benefits, and alternatives discussed, and informed consent obtained. ASA Physical Status: ASA2 Mod Systemic Disease Anesthetic Plan: GA Bene/Risks/Altern/Consents: Yes HP Complete Prior to Induction: Yes Mazin Bryant MD Oct 01, 2016 09:35
[2016-10-01] MEDS ORDERED: Lactated Ringer's 1,000 ML IV ONE ×2 (10:14→10:50)
--- NOTE | 2016-10-01 10:19 | NUR ---
Off Unit Patient off floor to PACU via stretcher.
[2016-10-01] MEDS ORDERED: Lactated Ringer's 1,000 ML IV SCH (11:01)
[2016-10-01] MEDS ORDERED: Lactated Ringer's 500 ML IV PRN (11:01)
[2016-10-01] MEDS ORDERED: EPHEDrine Sulfate 50 mg/mL Inj IVPUSH PRN (11:05)
[2016-10-01] MEDS ORDERED: EPHEDrine Sulfate 50 mg/mL Inj IM PRN (11:05)
[2016-10-01] MEDS ORDERED: Ondansetron 2 mg/mL 2 mL Inj IVPUSH PRN (11:05)
[2016-10-01] MEDS ORDERED: hydrOXYzine Inj 25 MG/1 mL SDV IM PRN (11:05)
[2016-10-01] MEDS ORDERED: Dexamethasone 4 mg/mL Inj IVPUSH PRN (11:05)
[2016-10-01] MEDS ORDERED: hydrALAZINE 20 mg/mL Inj IVPUSH PRN (11:05)
[2016-10-01] MEDS ORDERED: Labetalol 5 mg/mL 4 mL Inj IV PRN (11:05)
[2016-10-01] MEDS ORDERED: HYDROmorphone 1 mg/mL Inj IVPUSH PRN (11:05)
[2016-10-01] MEDS ORDERED: Atropine 0.4 mg/mL Inj IVPUSH PRN (11:05)
[2016-10-01] MEDS ORDERED: Phenylephrine 10,000 mCg/mL Inj IVPUSH PRN (11:05)
[2016-10-01] MEDS ORDERED: Bupivacaine-MPF 0.5% 30 mL Inj INFILTRATE ONE (11:10)
[2016-10-01] MEDS: fentaNYL-PF 50 mCg/mL 2 mL Inj IVPUSH PRN ×3 (12:28→12:40)
--- NOTE | 2016-10-01 12:28 | PCM.ANEP1 ---
Post Anesthesia Phase 1 PACU Phase 1 Assessment Date of Service: Sep 30, 2016 Vital Signs Vital Signs Date Time Temp Pulse Resp B/P Pulse Ox O2 Delivery O2 Flow Rate FiO2 10/01/16 12:15 36.4 59 22 159/81 96 Room Air 10/01/16 12:10 62 14 161/73 96 Room Air 10/01/16 12:05 60 22 167/90 96 Room Air 10/01/16 12:00 58 13 129/98 97 Room Air 10/01/16 11:55 71 16 141/60 95 Room Air 10/01/16 11:53 36.2 62 18 156/91 96 Room Air Anesthetic Administered: GA Level of Alertness: Awake, talking HAIDER's with Equal Strength: Yes Pain: No Nausea or Vomiting: No Oxygen Delivery: Room Air Lungs: Normal Air Movement Mazin Bryant MD Oct 01, 2016 12:28
--- NOTE | 2016-10-01 13:23 | NUR ---
Back on Unit Patient back on floor from PACU via stretcher in stable condition. Patient ambulated from stretcher to bathroom with no complaints. VSS. RA. Patient reported 8/10 abdominal pain. Denies nausea at this time. Doctor at bedside talking with patient. Call light and tray table within reach. Will continue to monitor patient hourly.
--- NOTE | 2016-10-01 13:32 | OP ---
[address] [address] OPERATIVE REPORT PATIENT: CAROL TONY : 1950 MR#: [id number] ADMIT: 09/28/2016 JOB ID: [id number] DATE OF SURGERY: 10/01/2016 PREOPERATIVE DIAGNOSIS(ES): Gallstone pancreatitis. POSTOPERATIVE DIAGNOSIS(ES): Gallstone pancreatitis. PROCEDURE: Laparoscopic cholecystectomy with cholangiogram. SURGEON: Jr Lo MD. INDICATION: A 66-year-old man with gallstone pancreatitis that is resolving. He has been seen by my partners, and I saw him again this morning to confirm plans for laparoscopic cholecystectomy including reviewing risks, benefits and possible complications. He wishes to proceed with me. FINDINGS: Normal intraoperative cholangiogram. See below for other details. DESCRIPTION OF PROCEDURE: The patient was brought to the operating room. SCOAP protocol was followed. He received perioperative piperacillin. He had been on preoperative piperacillin. Surgical time-out was performed. The abdomen was prepped and draped in a sterile fashion. We gained access with a Veress needle, followed by CO2 pneumoperitoneum and placement of optical trocars. Four trocars were placed. The gallbladder was retracted cephalad. The patient had a fair amount of edema with some inflammation but primarily edema around the head of the gallbladder. This was taken down, and we were able to easily develop the triangle of Calot, identifying the cystic duct as it entered into the gallbladder. I divided the cystic artery right on the gallbladder with cautery. Hemostasis was good. I placed a clip on the gallbladder side of the cystic duct and made a cystic duct incision, followed by placement of our cholangiocatheter. Intraoperative cholangiogram demonstrated a good flow into the duodenum without obstruction, nondilated common duct, normal proximal anatomy. The cholangiocatheter was removed. Cystic duct was doubly clipped just below the cystic ductotomy, followed by cystic duct division and dissection of the gallbladder out of liver bed without spillage of stones but with a little bit of bile spill. The specimen was placed in a bag and removed without wound contamination. We then inspected the area of dissection. Hemostasis was good. There was no active bile leak. We irrigated it out with copious amounts of sterile saline, suctioned out all of our irrigation, which was clear at this point. We then let our CO2 out, removed our ports and closed the fascia at the 11 mm port with 0 Vicryl, followed by subcuticular Monocryl and Steri-Strips. The patient tolerated the procedure well and, at the time of this dictation, is awakening from anesthesia. We will advance his diet today, with possible discharge as early as tomorrow.
--- NOTE | 2016-10-01 13:43 | NUR ---
NUTRITION ASSESSMENT: ASSESS: 66 YO male admitted for gallstone pancreatitis now s/p cholecystectomy today. Pt will likely have diet advanced today per notes. PMHx: Gallstones. LABS: Reviewed. Ca 8.3, Alb 3.3. MEDS: Reviewed. GI: No BM reported. CURRENT WT: 86.1 kg. DIET: Clear Liquids. PO 100% prior to surgery today. EST. NEEDS: 4194-9876 kcals (25-30 kcals/kg BW), 85-105 g protein (1.0-1.5 g/kg BW) NUTRITION DIAGNOSIS: 1.) Inadequate oral intake related to decreased ability to consume sufficient energy as evidenced by clear liquid diet x 3 days. NUTRITION INTERVENTION: 1.) Will continue to await timely advancement of diet, hopefully within 24-48 hours. MONITOR / EVAL: Diet advancement / tolerance, labs, nutritional status. Follow per moderate nutritional risk guidelines.
[2016-10-01] MEDS ORDERED: fentaNYL-PF 50 mCg/mL 2 mL Inj ONE (13:50)
--- NOTE | 2016-10-01 15:16 | DRSVH ---
PROCEDURE: X-RAY OPERATIVE CHOLANGIOGRAM ([id number]) INDICATIONS: GALLSTONE PANCREATITIS COMPARISON: None. FINDINGS: Biliary ducts: The surgeon injected contrast into the biliary ducts after cannulation of the cystic duct stump. Visualized intra- and extrahepatic bile ducts are normal in caliber, without strictures. No intraluminal filling defects to suggest retained ductal stones or sludge. No evidence for iatro genic ductal injury. Reflux into the distal pancreatic duct. Duodenum: Contrast flows promptly through the sphincter of Oddi into the duodenum, which appears nor mal in caliber. IMPRESSION: Normal operative cholangiogram. Dictated by: Edd SHARPE Interpreted: Lena Ivy MD on 10/01/2016 at 15:16 Transcribed by: ASHLEIGH on 10/01/2016 at 15:16 Approved by: Lena Ivy M.D. on 10/01/2016 at 16:22
[2016-10-01] MEDS ORDERED: oxyCODONE 1 mg/mL 5 mL Liquid PO ONE (16:55)
[2016-10-01] MEDS ORDERED: Propofol 10,000 mCg/mL 20 mL Inj ONE (19:23)
[2016-10-01] MEDS ORDERED: Neostigmine 1 mg/mL 5 mL Inj ONE (19:23)
[2016-10-01] MEDS ORDERED: Ondansetron 2 mg/mL 2 mL Inj ONE (19:23)
[2016-10-01] MEDS ORDERED: Glycopyrrolate 0.2 mg/mL 5 mL Inj ONE (19:23)
[2016-10-01] MEDS ORDERED: Rocuronium 10 mg/mL 5 mL Inj ONE (19:23)
[2016-10-01] MEDS: HYDROmorphone 1 mg/mL Inj IVPUSH PRN ×2 (22:27→23:55)
[2016-10-02] MEDS: Heparin 5,000 Unit/mL Inj SUBQ SCH ×2 (00:25→09:01)
[2016-10-02] MEDS: Piperacillin-Tazo 3.375 Gm Inj 3.375 GM in Dextrose 5% Minibag Plus 50 ML IV SCH ×2 (00:25→09:01)
--- NOTE | 2016-10-02 02:35 | NUR ---
Pain Med. with IVP dilaudid and helpful yet feeling much better after enc to amb. Up ind. and ind. with ADLs.Abd. soft with hypoactive BT,denies flatus thus far.Dressings D&I with minimal old drainage noted.I&O qs.,denies nausea,and VSS.Sleeping intermittently and resting comfortably at this time.Will cont. to monitor.
[2016-10-02] MEDS: 0.9% Sodium Chloride 1,000 ML IV SCH (02:49)
[2016-10-02 04:53] VITALS: BP 132/86; PULSE 70; RESP 18; O2SAT 93
[2016-10-02 06:26] LABS: BASOPHILS % (AUTO) 0.3 % (0-3); EOSINOPHILS % (AUTO) 2.1 % (0-5); MONOCYTES % (AUTO) 8.8 % (4-12); Mean Corpuscular Volume 83.9 fL (81-100); NEUTROPHILS % (AUTO) 71.6 % (40-74); Platelet Count 139 bil/L (150-400)
--- NOTE | 2016-10-02 07:05 | PCM.ANEP2 ---
Post Anesthesia Evaluation ASA/CMS Post Anesthesia VS in Patient's Normal Range?: Yes Resp Stable; Airway Patent?: Yes CV Function & Hydration Stable: Yes Mental Status Recovered?: Yes Pain control Satisfactory?: Yes N/V Control Satisfactory?: Yes Mazin Bryant MD Oct 02, 2016 07:05
[2016-10-02] MEDS: Pantoprazole 20 mg ER24 Tablet PO SCH (09:00)
--- NOTE | 2016-10-02 10:57 | PCM.PNSURG ---
Subjective Date of Service: Oct 02, 2016 Date of Service: Oct 02, 2016 Visit Information: Reason for Visit Pancreatitis R/O Biliary Obstruction Surgery/Surgery Date IRIS WHITAKERE 10/01/16 Post-Op Day # 1 Date of Admission: Sep 28, 2016 at 18:27 Subjective: Patient seen sitting up in chair at side of of bed. Pain is well-controlled and he only feels pain around the upper abdominal port. Denies nausea or vomiting, passing flatus. On clear liquid diet. Postop General: Other (as above) Gastrointestinal: No N/V, Passing Flatus, Other (no bowel movement since Friday.) Pain Management: IV Push (Dilaudid was given last night) Postop Activity: Ambulating Independently, Ambulating in [place] (extensively this morning) Objective Vital Sign- Last 8 Hours Date Time Temp Pulse Resp B/P Pulse Ox O2 Delivery O2 Flow Rate FiO2 10/02/16 04:53 36.5 70 18 132/86 93 Room Air Intake and Output- Last 8 Hour 10/02/16 Cumulative From/Thru 07:00 09/28/16 15:52 - 10/02/16 06:31 Intake Total 810 ml 16378 ml Output Total 600 ml 9500 ml Balance 210 ml 7480 ml Intake Oral 480 ml 7660 ml IV Total 330 ml 9320 ml Output Urine Total 600 ml 9500 ml # Voids 5 # Bowel Movements 0 General: Alert, Oriented X3, Cooperative, No Acute Distress Lungs: Clear to Auscultation Heart: Regular Rate/Rhythm Abdomen: Other (tender to palpation only surrounding upper abdominal port site. ) SURGICAL WOUND : Wound General Appearence: Intact Dressing & Drainage Status: Serous Drainage (dried) Result Diagram: 10/02/16 0555 10/02/16 0555 Lab & Micro Results: Lipase 22 AST 35 ALT 75 alkaline phosphatase 86 Total bili 1.2 Assessment & Plan Impression Diagnosis: Gallstone pancreatitis, postop day 1 status post laparoscopic cholecystectomy with negative intraoperative cholangiogram. Problems: Plan Advance diet today, as tolerated. Continue pain control, encourage oral analgesics instead of IV. Continue IS. Continue ambulation. When ready for d/c, will need follow up at the [facility] outpatient general surgery clinic next week. Dressings may be removed in 2 days and replaced with Band-Aids. No lifting greater than 15 pounds for 2 weeks. Pain Management: By mouth analgesics as needed. VTE Prophylaxis: Sub-Q Heparin (Unfractionated) Resuscitation Status: CPR: Attempt Resuscitation Nevin Kam PA-C Oct 02, 2016 09:54
[2016-10-02] MEDS ORDERED: HYDROcodone-APAP 5-325 mg Tablet PO PRN (11:05)
--- NOTE | 2016-10-02 13:10 | PCM.PNMED ---
Subjective Date of Service Oct 02, 2016 Subjective Patient is postop day #1. Laparoscopic cholecystectomy. He has been tolerating the clear liquid diet and wishes to progress. He is anxious to try to go home later today. He has had no nausea or vomiting. He has passed flatus. Exam Vital Signs Vital Sign - Last Date Time Temp Pulse Resp B/P Pulse Ox O2 Delivery O2 Flow Rate FiO2 10/02/16 04:53 36.5 70 18 132/86 93 Room Air Intake and Output 10/01/16 10/01/16 10/02/16 Cumulative From/Thru 15:00 23:00 07:00 09/28/16 15:52 - 10/02/16 06:31 Intake Total 1130 ml 2040 ml 810 ml 60354 ml Output Total 975 ml 600 ml 9500 ml Balance 1130 ml 1065 ml 210 ml 7480 ml Intake Oral 2040 ml 480 ml 7660 ml IV Total 1130 ml 330 ml 9320 ml Output Urine Total 975 ml 600 ml 9500 ml # Voids 5 # Bowel Movements 0 Exam Constitutional: Middle-aged man in no acute distress Head: Normocephalic atraumatic Chest: Clear to auscultation Cor: Regular rate and rhythm S1-S2 Abdomen: Soft with several laparoscopic incision sites which are covered with dressings bowel sounds are present. Mild tenderness in the epigastrium otherwise no tenderness to palpation. Extremities: No pedal edema Neuro: Alert and oriented 3, motor strength is intact bilaterally Lab and Diagnostics Laboratory Tests 72 Hours Test 09/30/16 03:30 09/30/16 05:25 10/01/16 04:53 10/01/16 05:40 Sodium Level 139mEq/L (134-144) 140mEq/L (134-144) Potassium Level 3.5mEq/L (3.5-5.2) 3.7mEq/L (3.5-5.2) Chloride Level 104mEq/L (97-108) 106mEq/L (97-108) Carbon Dioxide Level 24mmol/L (18-29) 24mmol/L (18-29) Blood Urea Nitrogen 6mg/dL (8-27) 5mg/dL (8-27) Creatinine 0.90mg/dL (0.76-1.27) 0.92mg/dL (0.76-1.27) Estimat Glomerular Filtration Rate 89mL/min (>59) 87mL/min (>59) Glucose Level 84mg/dL (60-99) 97mg/dL (60-99) Calcium Level 8.1mg/dL (8.5-10.1) 8.3mg/dL (8.5-10.1) Total Bilirubin 2.0mg/dL (0.0-1.2) 1.5mg/dL (0.0-1.2) Aspartate Amino Transf (AST/SGOT) 73U/L (0-50) 33U/L (0-50) Alanine Aminotransferase (ALT/SGPT) 132U/L (0-44) 92U/L (0-44) Alkaline Phosphatase 86U/L (25-160) 89U/L (25-160) Total Protein 5.3g/dL (6.4-8.4) 5.6g/dL (6.4-8.4) Albumin 3.3g/dL (3.4-5.0) 3.3g/dL (3.4-5.0) Lipase 60U/L (13-60) 25U/L (13-60) White Blood Count 9.9th/mm3 (3.8-10.1) 7.7th/mm3 (3.8-10.1) Red Blood Count 4.56mil/mm3 (4.40-5.80) 4.65mil/mm3 (4.40-5.80) Hemoglobin 13.0g/dL (13.8-17.2) 13.5g/dL (13.8-17.2) Hematocrit 38.7% (41.0-50.0) 39.2% (41.0-50.0) Mean Corpuscular Volume 84.9fL (81-100) 84.3fL (81-100) Mean Corpuscular Hemoglobin 28.5pg (27.0-35.0) 29.0pg (27.0-35.0) Mean Corpuscular Hemoglobin Concent 33.6% (32.0-37.0) 34.4% (32.0-37.0) Red Cell Distribution Width 14.2% (12.3-15.4) 13.9% (12.3-15.4) Platelet Count 131bil/L (150-400) 133bil/L (150-400) Neutrophils (%) (Auto) 72.3% (40-74) 69.0% (40-74) Lymphocytes (%) (Auto) 16.6% (14-46) 18.0% (14-46) Monocytes (%) (Auto) 10.6% (4-12) 10.1% (4-12) Eosinophils (%) (Auto) 0.3% (0-5) 2.3% (0-5) Basophils (%) (Auto) 0.1% (0-3) 0.3% (0-3) Prothrombin Time 11.6sec (8.1-12.5) Prothromb Time International Ratio 1.08ratio Test 10/02/16 05:55 White Blood Count 7.2th/mm3 (3.8-10.1) Red Blood Count 4.66mil/mm3 (4.40-5.80) Hemoglobin 13.5g/dL (13.8-17.2) Hematocrit 39.1% (41.0-50.0) Mean Corpuscular Volume 83.9fL (81-100) Mean Corpuscular Hemoglobin 29.0pg (27.0-35.0) Mean Corpuscular Hemoglobin Concent 34.5% (32.0-37.0) Red Cell Distribution Width 14.0% (12.3-15.4) Platelet Count 139bil/L (150-400) Neutrophils (%) (Auto) 71.6% (40-74) Lymphocytes (%) (Auto) 16.9% (14-46) Monocytes (%) (Auto) 8.8% (4-12) Eosinophils (%) (Auto) 2.1% (0-5) Basophils (%) (Auto) 0.3% (0-3) Sodium Level 139mEq/L (134-144) Potassium Level 3.5mEq/L (3.5-5.2) Chloride Level 103mEq/L (97-108) Carbon Dioxide Level 19mmol/L (18-29) Blood Urea Nitrogen 5mg/dL (8-27) Creatinine 0.81mg/dL (0.76-1.27) Estimat Glomerular Filtration Rate 101mL/min (>59) Glucose Level 138mg/dL (60-99) Calcium Level 8.3mg/dL (8.5-10.1) Total Bilirubin 1.2mg/dL (0.0-1.2) Aspartate Amino Transf (AST/SGOT) 35U/L (0-50) Alanine Aminotransferase (ALT/SGPT) 75U/L (0-44) Alkaline Phosphatase 86U/L (25-160) Total Protein 5.7g/dL (6.4-8.4) Albumin 3.3g/dL (3.4-5.0) Lipase 22U/L (13-60) Result Diagram: 10/02/16 0555 10/02/16 0555 X-Rays, CTs and MRIs CT Abdomen (09/28/2016): 1. Cholelithiasis with mild gallbladder wall thickening and a small amount of pericholecystic fluid suspicious for cholecystitis. 2. No biliary ductal dilatation. 3. Mild indistinct hypoattenuation in the head and uncinate process of the pancreas with adjacent fluid along the anterior pararenal space compatible with patient's history of pancreatitis. No evidence of pseudocyst. US Abdomen (09/28/2016): 1. Cholelithiasis without evidence of cholecystitis.2. No biliary duct dilatation. MRCP, September 29: IMPRESSION: 1. Mild enlargement of the common bile duct without evidence of choledocholithiasis. 2. Gallbladder wall thickening, pericholecystic fluid, and cholelithiasis are suggestive of acute cholecystitis. Please correlate clinically. 3. Moderate pancreatic edema and suggests pancreatitis. No pseudocysts are evident. Please note that the pancreas is not adequately evaluated on this exam regarding pancreatitis complications. 4. Mild upper abdominal ascites. 5. Small bilateral effusions (right and left). There is mild right lower lobe consolidation which probably represents atelectasis. Pneumonia cannot be excluded. Dictated by: Brenden Kasper M.D. on 09/29/2016 at 9:59 Assessment & Plan Gallstone pancreatitis -Multiple imaging studies without evidence of choledocholithiasis, LFTs are improving however bilirubin is minimally up today -Recommend following LFTs -Post operative day #1 for laparoscopic cholecystectomy -Patient is tolerating clear liquid diet and will progress to full liquid and consider discharge later today Colon cancer screening -Recommend colonoscopy as an outpatient for screening GI Prophylaxis: H2 moon VTE Prophylaxis: Sub-Q Heparin (Unfractionated) VTE Mechanical Devices: Intermittant Pneumatic CD Resuscitation Status: CPR: Attempt Resuscitation Time spent 30 minutes Ayse Hall MD Oct 02, 2016 13:10
[2016-10-02 14:33] VITALS: BP 144/77; PULSE 59; RESP 18; O2SAT 100
--- NOTE | 2016-10-02 18:25 | PCM.DIMED ---
Discharge Instructions Date of Service Oct 02, 2016 Dates of Hospitalization Sep 28, 2016 at 18:27 Discharge Diagnosis Discharge Diagnosis S/P Laparoscopic cholecystectomy Diet Low fat, Low Sodium Activity Other (As per general surgery with no lifting or bending ) Patient Instructions Provider: Angelo Tsang MD Follow-up in: 1 week Ayse Hall MD Oct 02, 2016 18:25
[2016-10-02] MEDS ORDERED: HYDR-4003 PO (18:26)
--- NOTE | 2016-10-02 18:30 | PCM.DC.MED ---
Discharge Summary Date of Service Oct 02, 2016 Dates of Hospitalization Date of Hospital Admission Sep 28, 2016 at 18:27 Date of Discharge: Oct 02, 2016 Providers: Admitting Physician: Ari Morrison MD Primary Care Physician: Nopgeovanny Attending Physician: Ari Morrison MD Diagnosis at Time of Discharge Diagnosis at Time of Discharge S/P Laparoscopic cholecystectomy Consultations Gastroenterology, general surgery Procedures XRay, CTs & MRIs CT Abdomen (09/28/2016): 1. Cholelithiasis with mild gallbladder wall thickening and a small amount of pericholecystic fluid suspicious for cholecystitis. 2. No biliary ductal dilatation. 3. Mild indistinct hypoattenuation in the head and uncinate process of the pancreas with adjacent fluid along the anterior pararenal space compatible with patient's history of pancreatitis. No evidence of pseudocyst. US Abdomen (09/28/2016): 1. Cholelithiasis without evidence of cholecystitis.2. No biliary duct dilatation. MRCP, September 29: IMPRESSION: 1. Mild enlargement of the common bile duct without evidence of choledocholithiasis. 2. Gallbladder wall thickening, pericholecystic fluid, and cholelithiasis are suggestive of acute cholecystitis. Please correlate clinically. 3. Moderate pancreatic edema and suggests pancreatitis. No pseudocysts are evident. Please note that the pancreas is not adequately evaluated on this exam regarding pancreatitis complications. 4. Mild upper abdominal ascites. 5. Small bilateral effusions (right and left). There is mild right lower lobe consolidation which probably represents atelectasis. Pneumonia cannot be excluded. Dictated by: Brenden Kasper M.D. on 09/29/2016 at 9:59 Brief History 66 y/o male with h/o cholelithiasis presented to ED with c/o abdominal pain that started yesterday. He describes the pain as sharp, diffuses, non radiating , increased by lying down and bending. Associated with one episodes of non bloody vomiting. He also reports subjective feeling of fever, sweating and chills. He denies any chest pain, shortness of breath. In ED, he was found to hypertensive, saturating 93% on room air. Lab tests revealed mild leukocytosis ( wbc: 10.8), elevated lipase of 7603 and mild hypokalemia (3.4). Hospital Course Gallstone pancreatitis -Multiple imaging studies without evidence of choledocholithiasis, LFTs are improving however bilirubin is minimally up today -Recommend following LFTs -Post operative day #1 for laparoscopic cholecystectomy -Patient is tolerating clear liquid diet and will progress to full liquid and consider discharge later today Colon cancer screening -Recommend colonoscopy as an outpatient for screening Exam Vital Signs (Last) Date Time Temp Pulse Resp B/P Pulse Ox O2 Delivery O2 Flow Rate FiO2 10/02/16 14:33 36.7 59 18 144/77 100 Room Air Test 09/28/16 16:06 09/28/16 18:45 09/30/16 05:25 10/02/16 05:55 Magnesium Level 1.9mg/dL (1.6-2.6) Urine Color Yellow (YELLOW) Urine Appearance Clear (CLEAR,HAZY) Urine pH 8.0 (5.0-8.0) Urine Specific [place]dy 1.020 (1.003-1.035) Urine Protein Negativemg/dL (NEG,TRACE) Urine Glucose (UA) Negativemg/dL (NEGATIVE) Urine Ketones 15mg/dL (NEGATIVE) Urine Occult Blood Negative (NEGATIVE) Urine Nitrite Negative (NEGATIVE) Urine Bilirubin Negative (NEGATIVE) Urine Urobilinogen Normalmg/dL (NORMAL) Urine Leukocyte Esterase Negative (NEGATIVE) Urine RBC 0-2/hpf (0-2) Urine WBC 0-5/hpf (0-5) Urine Epithelial Cells None/hpf (NONE-MOD) Urine Crystals None seen (NONE SEEN) Urine Bacteria None/hpf (NONE-FEW) Urine Hyaline Casts None/lpf (NONE) Urine Granular Casts None seen (NONE SEEN) Urine Waxy Casts None seen (NONE SEEN) Urine Red Blood Cell Casts None seen (NONE SEEN) Urine White Blood Cell Casts None seen (NONE SEEN) Urine Mucus None seen (None Seen) Urine Trichomonas None seen (NONE SEEN) Urine Yeast None (NONE SEEN) Urinalysis Comment None Urine Culture Reflexed Not indicated Prothrombin Time 11.6sec (8.1-12.5) Prothromb Time International Ratio 1.08ratio White Blood Count 7.2th/mm3 (3.8-10.1) Red Blood Count 4.66mil/mm3 (4.40-5.80) Hemoglobin 13.5g/dL (13.8-17.2) Hematocrit 39.1% (41.0-50.0) Mean Corpuscular Volume 83.9fL (81-100) Mean Corpuscular Hemoglobin 29.0pg (27.0-35.0) Mean Corpuscular Hemoglobin Concent 34.5% (32.0-37.0) Red Cell Distribution Width 14.0% (12.3-15.4) Platelet Count 139bil/L (150-400) Neutrophils (%) (Auto) 71.6% (40-74) Lymphocytes (%) (Auto) 16.9% (14-46) Monocytes (%) (Auto) 8.8% (4-12) Eosinophils (%) (Auto) 2.1% (0-5) Basophils (%) (Auto) 0.3% (0-3) Sodium Level 139mEq/L (134-144) Potassium Level 3.5mEq/L (3.5-5.2) Chloride Level 103mEq/L (97-108) Carbon Dioxide Level 19mmol/L (18-29) Blood Urea Nitrogen 5mg/dL (8-27) Creatinine 0.81mg/dL (0.76-1.27) Estimat Glomerular Filtration Rate 101mL/min (>59) Glucose Level 138mg/dL (60-99) Calcium Level 8.3mg/dL (8.5-10.1) Total Bilirubin 1.2mg/dL (0.0-1.2) Aspartate Amino Transf (AST/SGOT) 35U/L (0-50) Alanine Aminotransferase (ALT/SGPT) 75U/L (0-44) Alkaline Phosphatase 86U/L (25-160) Total Protein 5.7g/dL (6.4-8.4) Albumin 3.3g/dL (3.4-5.0) Lipase 22U/L (13-60) Discharge Medications As needed Hydrocodone-Acetaminophen 5-325 mg (Hydrocodone-Acetaminophen 5-325 mg) 1 Each Tablet 1 TABLET PO Q4H PRN PRN For Mild Pain Prescribed by: TEO HALL MD Followup Plan Discharge Diet: Low fat, Low Sodium Discharge Activity: Other (As per general surgery with no lifting or bending ) Provider: Angelo Tsang MD Follow-up in: 1 week Teo Hall MD Oct 02, 2016 18:30
--- NOTE | 2016-10-02 19:46 | NUR ---
Discharge Pt discharged at 191, picked up by friend, all belongings and instructions given with pt.
--- NOTE | 2016-10-03 13:22 | PATH ---
SURGICAL PATHOLOGY Attending Physician:Jr Lo MD CASE STATUS: Signed Out PATIENT NAME: CAROL TONY PID: [id number] : 1950 DATE COLLECTED:10/01/2016 20:20 SPECIMEN: Gallbladder CLINICAL HISTORY: GALLSTONES, PANCREATITIS 1). GALLBLADDER FINAL DIAGNOSIS: 1.GALLBLADDER, CHOLECYSTECTOMY: CHRONIC CHOLECYSTITIS WITH FOCAL INTESTINAL METAPLASIA AND CHOLELITHIASIS. NO EVIDENCE OF DYSPLASIA OR MALIGNANCY. ICD10 CODE K80.6 GROSS DESCRIPTION: The specimen is received in one formalin filled container labeled with the patient's name, sublabeled "gallbladder" and consists of an opened 5.3 x 2.5 x 2.5 CM gallbladder. The serosa is smooth. The cystic duct is possibly not identified. The wall is 0.2-0.4 CM in thickness. The mucosa is a light green to dark green in color. The lumen contains a dark green mucoid material and 4 light yellow calculi which range in size from 0.3-1.8 CM in greatest dimension. 5 sales representative raw fibers sections are submitted in one cassette. 10/01/2016 [facility] MICRO DESCRIPTION: See diagnosis. ICD-9 CODES: CPT CODES: 1: 41552 Electronically Signed Out Shannan Forrester MD [facility] Pathology [facility] [address] [place] [address] Technical component performed at [facility], [facility] [address], [address]
== END 2016-10-02 19:24 | disposition home or self-care (01) | DRG 418 ==
LOC: EDBD 15:56 → SED 15:56 → OSC 18:27
PROVIDERS: ADMIT Internal Medicine; ATTEND Internal Medicine
PROC: BF03YZZ Plain Radiography of Gallbladder and Bile Ducts using Other Contrast (ICD-10-PCS; 2016-10-01)
PROC: 0FT44ZZ Resection of Gallbladder, Percutaneous Endoscopic Approach (ICD-10-PCS; principal; 2016-10-01 10:30)
DX: K85.10 Biliary acute pancreatitis without necrosis or infection (principal); K81.0 Acute cholecystitis; Z87.891 Personal history of nicotine dependence